=== PATIENT | female | born 1970 | race Caucasian/White ===

== ENCOUNTER → 2017-02-09 | Outpatient (CLI) | payer OTHER ==
[~2017-02-09] MED LIST: ABL/5 PO; ALBU1AER9 INH; ALUMCHW2 PO; ANSHCCR/ TOP; CITA40TA12 PO; CLIN1GEL TOP; DIPH25CA65 PO; FURO20TA PO; LEVO88TA3 PO; METH500T PO; PRLSR20 PO; ROPI1TAB PO; SUMA50TA15 PO
--- NOTE | 2017-02-09 11:00 | DIAGNOSTIC IMAGING REPORT ---
GI SERIES W/O KUB CLINICAL HISTORY: 46-year-old female with history of epigastric pain. TECHNIQUE: A standard air contrast upper GI series was performed. Spot images of the esophagus and stomach were obtained in multiple obliquities both upright and prone. COMPARISON: CT from 2010. FINDINGS: The patient swallowed barium without difficulty. The esophagus is structurally normal without evidence of intrinsic or extrinsic mass. The esophageal mucosal pattern is normal. Delayed clearance of oral contrast from the esophagus without evidence of dysmotility. Patient is status post Isaac-en-Y gastric bypass. Expected size of the gastric pouch. No ulceration. Patent gastrojejunostomy without evidence of holdup or leak. Normal appearing duodenal bulb and duodenal sweep. Contrast transited the proximal small anastomosis with rapid filling of small bowel. At the conclusion of the study, contrast had not yet reached the ileocecal valve, although a large portion of small bowel is normally opacified, which may encompass the distal anastomosis. Fluoroscopy dosage (mGy): Not available. Fluoroscopy time: 2.2 minutes. Number of fluoroscopic spot images: 22 and 1 overhead abdominal radiograph. IMPRESSION: Expected postoperative appearance of Isaac-en-Y gastric bypass. No leak or holdup. Delayed clearance of oral contrast from the esophagus likely an expected early postsurgical finding. Electronically signed by: Maykel Wilburn M.D. 02/09/2017 10:59 AM Dictated Date/Time: 02/09/2017 10:55 AM
== END | disposition home or self-care (01) ==
LOC: C.RAD 07:34
PROVIDERS: ATTEND Surgery
DX: R10.13 Epigastric pain (principal)

== ENCOUNTER 2017-05-07 21:02 | Emergency (ER) | payer OTHER ==
[~2017-05-07] VITALS: Ht 160 cm; Wt 88.6 kg
[2017-05-07 21:06] VITALS: TEMP 36.8; Ht 160 cm; Wt 88.6 kg
[2017-05-07] MEDS ORDERED: SODIUM CHLORIDE 0.9% 1000ML 1,000 ML IV ONE (21:24)
[2017-05-07] MEDS ORDERED: ONDANSETRON INJ 2 MG/ML 2 ML VIAL IV STA ×2 (21:24→23:20)
[2017-05-07] MEDS ORDERED: SODIUM CHLORIDE 0.9% 1000ML 1,000 ML IV STA ×2 (21:24→23:22)
[2017-05-07 21:51] LABS: BASO % 0.7 %; BASO ABS # 0.06 K/uL (0-0.2); COMPLETE YES; EOS % 5.7 %; HEMATOCRIT 35.4 % (37-47); IG% 0.2 %; LYMPH % 33.5 %; LYMPH ABS # 2.98 K/uL (1.2-3.4); MEAN CELL VOLUME 82.5 fL (80-100); MEAN CORPUSCULAR HGB CONC 33.9 g/dl (32-36); MONO % 7.3 %; NEUT % 52.6 %; PLATELET COUNT 240 K/uL (130-400); RED BLOOD COUNT 4.29 M/uL (4.2-5.4); WHITE BLOOD COUNT 8.89 K/uL (4.8-10.8)
[2017-05-07 22:13] LABS: ALKALINE PHOSPHATASE 115 U/L (45-117); ALT/SGPT 16 U/L (12-78); AST/SGOT 10 U/L (15-37)
[2017-05-07 23:10] LABS: BUN/CREATININE RATIO 11.5 (10-20); CALCIUM 8.7 mg/dl (8.5-10.1); CREATININE 0.58 mg/dl (0.60-1.20); POTASSIUM 2.9 mmol/L (3.5-5.1)
[2017-05-07] MEDS ORDERED: POTASSIUM CHLORIDE 20 MEQ/15 ML UDC PO STA (23:20)
[2017-05-07 23:23] LABS: URINE APPEARANCE TURBID (CLEAR); URINE COLOR DK YELLOW; URINE EPITHELIAL CELL AUTO >30 /lpf (0-5); URINE NITRITE NEG (NEG); URINE SPECIFIC GRAVITY 1.028 (1.000-1.030); UROBILINOGEN NEG (NEG)
[2017-05-07 23:41] LABS: MANUAL MICROSCOPIC REQUIRED? NO; REVIEW REQ? YES; URINE BILIRUBIN NEG (NEG); URINE MUCUS PRESENT (NONE PRSENT)
[2017-05-08] MEDS ORDERED: OPTIRAY 320 IV PRN
[2017-05-08] MEDS ORDERED: PROMETHAZINE HCL INJ 12.5 MG in SODIUM CHLORIDE 0.9% 50ML 50 ML IV STA (01:19)
--- NOTE | 2017-05-08 03:06 | EMERGENCY ROOM VISIT NOTE ---
History Report prepared by Sourav: Kathryn Arias Under the Supervision of: Dr. Art Mariscal M.D. First contact with patient: 21:17 Chief Complaint: VOMITING Stated Complaint: HAS ULCER,CAN'T KEEP ANYTHING DOWN History of Present Illness The patient is a 46 year old female who presents to the Emergency Room with complaints of constant vomiting starting 2 weeks ago. The patient states that she had a gastric bypass in December. She reports a few weeks after she was diagnosed with an ulcer. She reports that they found it with an endoscopy after she couldn't keep food down. She states that she has started to not even be able to keep liquids down. The patient complains of nausea. The patient denies hematochezia, hematemesis, melena, fevers, chest pain, shortness of breath, chance of , having imaging down on her abdomen, and seeing her PCP for this. She notes her depression has been good and she has not been taking her Lasix. Source of History: patient Onset: 2 weeks ago Position: other (global) Quality: other (global) Timing: constant Associated Symptoms: + nausea, No fevers, No chest pain, No SOB, No melena, No hematochezia Note: The patient denies hematemesis. Review of Systems See HPI for pertinent positives & negatives. A total of 10 systems reviewed and were otherwise negative. Past Medical & Surgical Surgical Problems: (1) Hx of cholecystectomy Old medical records were reviewed. Nurse's notes were reviewed and I agree with. Family History Hypertension Social History Smoking Status: Never Smoker Alcohol Use: none Drug Use: none Marital Status: Housing Status: lives with significant other Occupation Status: employed Current/Historical Medications Scheduled Albuterol (Proair Hfa), 2 PUFFS INH Q4HR PRN Aluminum Hydroxide-Mag Trisil (Gaviscon), 2 TAB PO TIDM Aripiprazole (Abilify), 5 MG PO QAM Furosemide (Lasix), 20 MG PO mon,wed,fri Levothyroxine Sodium (Levothyroxine Sodium), 1 TAB PO QAM Omeprazole (Prilosec), 20 MG PO BID Ondasetron Odt (Zofran Odt), 4 MG SL Q6H Ropinirole Hydrochloride (Requip), 1 MG PO TID Sumatriptan Succinate (Imitrex), 50 MG PO UD Scheduled PRN Methocarbamol (Robaxin), 2 TAB PO QID PRN for Pain Allergies Coded Allergies: Acetaminophen (Unverified Allergy, Unknown, HIVES, 09/25/15) Codeine (Verified Allergy, Unknown, hives, 09/25/15) Dextromethorphan (Unverified Allergy, Unknown, HIVES, 09/25/15) Doxylamine (Unverified Allergy, Unknown, HIVES, 09/25/15) Ethanol (Unverified Allergy, Unknown, HIVES, 09/25/15) Morphine (Unverified Allergy, Unknown, RASH, 05/07/17) Pseudoephedrine (Unverified Allergy, Unknown, HIVES, 09/25/15) Physical Exam Vital Signs Date Time Temp Pulse Resp B/P (MAP) Pulse Ox O2 Delivery O2 Flow Rate FiO2 05/08/17 02:21 64 18 120/80 98 Room Air 05/07/17 22:40 56 15 100/54 93 Room Air 05/07/17 21:06 36.8 69 16 111/75 97 Room Air Physical Exam General: Non-ill appearing middle aged female in no acute distress. HEENT: Normal cephalic atraumatic. Pupils are equal round and reactive to light. Extraocular movements are intact. Oropharynx is pink with moist mucous membranes. No swelling of the mouth lips or tongue. Neck: Supple with a midline trachea. No meningeal signs or stiffness, no JVD or bruits. No Stridor. Chest: Clear to auscultation bilaterally. No wheezes or rhonchi. No increased work of breathing. Heart: regular rate and rhythm. Abdomen: Soft, nondistended without rebound guarding or rigidity. Mildly tender in epigastric region. Well healing surgical incisions. Extremities: No cyanosis clubbing or edema. No calf tenderness or assymetry Spine/Back. Non tender to palpation. No CVA tenderness Skin: Good turgor without rashes. Neurologic exam: Cranial nerves two through 12 are intact. Motor and sensation are intact and symmetrical throughout. Medical Decision & Procedures ER Provider Diagnostic Interpretation: Radiology results as stated below per my review and radiologist interpretation: CT ABDOMEN & PELVIS: Compared to CT 04/02/11. Status post gastric bypass surgery with mild gastric and bowel wall thickening and adjacent stranding at the anastomosis in the epigastrium. Correlate clinically for inflammatory/ infectious process. A fluid and air-containing structure measuring 2.4 x 2.1 cm at the medical aspect of the anastomosis (series 2, images 17-19), possible bowel but cannot exclude possibility of abscess/dehiscence. Fluid is noted in small bowel loops, nonspecific, can be seen with enteritis in the appropriate clinical setting. No evidence of bowel obstruction. Slightly heterogenous renal enhancement. Small pelvic free fluid. Normal appendix. Prior cholecystectomy. Radiologist: Madalyn Kohler M.D. Study ready at 00:20 and initial results transmitted at 01:09. Laboratory Results 05/07/17 21:38 Red Blood Count 4.29, Mean Corpuscular Volume 82.5, Mean Corpuscular Hemoglobin 28.0, Mean Corpuscular Hemoglobin Concent 33.9, Mean Platelet Volume 11.0, Neutrophils (%) (Auto) 52.6, Lymphocytes (%) (Auto) 33.5, Monocytes (%) (Auto) 7.3, Eosinophils (%) (Auto) 5.7, Basophils (%) (Auto) 0.7, Neutrophils # (Auto) 4.67, Lymphocytes # (Auto) 2.98, Monocytes # (Auto) 0.65, Eosinophils # (Auto) 0.51, Basophils # (Auto) 0.06 05/07/17 21:38 Test 05/07/17 21:38 05/07/17 21:47 05/07/17 22:10 White Blood Count 8.89 K/uL (4.8-10.8) Red Blood Count 4.29 M/uL (4.2-5.4) Hemoglobin 12.0 g/dL (12.0-16.0) Hematocrit 35.4 % (37-47) Mean Corpuscular Volume 82.5 fL (80-100) Mean Corpuscular Hemoglobin 28.0 pg (25-34) Mean Corpuscular Hemoglobin Concent 33.9 g/dl (32-36) Platelet Count 240 K/uL (130-400) Mean Platelet Volume 11.0 fL (7.4-10.4) Neutrophils (%) (Auto) 52.6 % Lymphocytes (%) (Auto) 33.5 % Monocytes (%) (Auto) 7.3 % Eosinophils (%) (Auto) 5.7 % Basophils (%) (Auto) 0.7 % Neutrophils # (Auto) 4.67 K/uL (1.4-6.5) Lymphocytes # (Auto) 2.98 K/uL (1.2-3.4) Monocytes # (Auto) 0.65 K/uL (0.11-0.59) Eosinophils # (Auto) 0.51 K/uL (0-0.5) Basophils # (Auto) 0.06 K/uL (0-0.2) RDW Standard Deviation 45.2 fL (36.4-46.3) RDW Coefficient of Variation 14.9 % (11.5-14.5) Immature Granulocyte % (Auto) 0.2 % Immature Granulocyte # (Auto) 0.02 K/uL (0.00-0.02) Anion Gap 8.0 mmol/L (3-11) Est Creatinine Clear Calc Drug Dose 130.7 ml/min Estimated GFR () 129.9 Estimated GFR (Non- 112.1 BUN/Creatinine Ratio 11.5 (10-20) Calcium Level 8.7 mg/dl (8.5-10.1) Total Bilirubin 0.4 mg/dl (0.2-1) Direct Bilirubin < 0.1 mg/dl (0-0.2) Aspartate Amino Transf (AST/SGOT) 10 U/L (15-37) Alanine Aminotransferase (ALT/SGPT) 16 U/L (12-78) Alkaline Phosphatase 115 U/L (45-117) Total Protein 6.7 gm/dl (6.4-8.2) Albumin 3.2 gm/dl (3.4-5.0) Lipase 60 U/L (73-393) Bedside Troponin I < 0.030 ng/ml (0-0.045) Urine Color DK YELLOW Urine Appearance TURBID (CLEAR) Urine pH 5.0 (4.5-7.5) Urine Specific [place] 1.028 (1.000-1.030) Urine Protein NEG (NEG) Urine Glucose (UA) NEG (NEG) Urine Ketones TRACE (NEG) Urine Occult Blood NEG (NEG) Urine Nitrite NEG (NEG) Urine Bilirubin NEG (NEG) Urine Urobilinogen NEG (NEG) Urine Leukocyte Esterase TRACE (NEG) Urine WBC (Auto) 1-5 /hpf (0-5) Urine RBC (Auto) 0-4 /hpf (0-4) Urine Hyaline Casts (Auto) 0 /lpf (0-5) Urine Epithelial Cells (Auto) >30 /lpf (0-5) Urine Bacteria (Auto) NEG (NEG) Urine Crystals CALCIUM OXALATE (NONE Urine Pathogenic Casts /lpf (0) Urine Mucus PRESENT (NONE PRSENT) Laboratory studies as stated above per my review. Medications Administered Medications (Trade) Dose Ordered Sig/Tess Route Start Time Stop Time Status Last Admin Dose Admin Sodium Chloride 1,000 ml @ 999 mls/hr Q1H1M STAT IV 05/07/17 21:24 05/07/17 22:24 DC 05/07/17 22:36 999 MLS/HR Sodium Chloride 1,000 ml @ 200 mls/hr Q5H ONCE IV 05/07/17 21:24 05/08/17 02:23 DC 05/07/17 22:36 200 MLS/HR Ondansetron HCl (Zofran Inj) 4 mg NOW STAT IV 05/07/17 21:24 05/07/17 21:26 DC 05/07/17 22:33 4 MG Ondansetron HCl (Zofran Inj) 4 mg NOW STAT IV 05/07/17 23:20 05/07/17 23:23 DC 05/07/17 23:31 4 MG Potassium Chloride (Balbina Ciel Elix) 40 meq NOW STAT PO 05/07/17 23:20 05/07/17 23:23 DC 05/07/17 23:31 40 MEQ Sodium Chloride 1,000 ml @ 999 mls/hr Q1H1M STAT IV 05/07/17 23:22 05/08/17 00:22 DC 05/07/17 23:31 999 MLS/HR Promethazine HCl 12.5 mg/Sodium Chloride 50.5 ml @ 204 mls/hr NOW STAT IV 05/08/17 01:19 05/08/17 01:33 DC 05/08/17 01:29 204 MLS/HR ECG Indication: vomiting Rate (beats per minute): 61 Rhythm: normal sinus Findings: RBBB, no acute ischemic change Comparison ECG Date: January 09, 2017 Change: Bundle branch block is now present. ED Course 2117: Past medical records reviewed. The patient was evaluated in room B8, and a complete history and physical examination were performed. 2123: Ordered Zofran Inj 4 mg IV, NSS 1000 ml @ 200 mls/hr IV, NSS 1000 ml @ 999 mls/hr IV. 2230: I reevaluated the patient and she is just getting medication. 2312: I reevaluated the patient and she is doing okay. 2320: Ordered Potassium Chloride 40 meq PO, Zofran Inj 4 mg IV. 2322: Ordered NSS 1000 ml @ 999 mls/hr IV. 0006: I reevaluated the patient and she is coming back from CT. She appears comfortable. 0118: I reevaluated the patient and she is still nauseous. 0119: Ordered Promethazine HCl 12.5 mg/ Sodium Chloride 50.5 ml @ 204 mls/hr IV. 0126: I discussed the patient's case with Dr. Retana- patricia. He would like the patient to have another CT with contrast. 0214: I went to reevaluate the patient, but she is currently at CT. Medical Decision Differential diagnoses include dehydration, infection, ulcer, cardiac disease, electrolyte abnormality, metabolic abnormality. This patient comes in as described above. She was placed in room B8. She is here for treatment and evaluation of vomiting and epigastric abdominal discomfort. She had a gastric bypass this past December and had endoscopy in January and was told she had an ulcer at the anastomosis she's had no blood or melena in her stools she's not been vomiting any blood. She's had no fevers. She tells me over the last couple weeks. She's had a hard time keeping down food or fluids. On exam, she appears mildly uncomfortable however has no peritonitis. She is afebrile here. IV access established was hydrated with IV normal saline and received 2 L IV while she was here over several hours. She was given Zofran 4 mg IV 2 and Phenergan 12.5 mg IV for nausea management while she was here and seems to be doing better. She's had no white count or fever to suggest infection. She has no significant electrolyte or metabolic abnormalities and nothing to suggest dehydration. She's nothing had nothing to suggest that has pancreatitis. I did a CAT scan and there is some stranding at the anastomosis as well as an air-fluid structure which could be bowel or abscess/dehiscence I called and talked to Dr. Retana , who is the [facility] physician covering for her surgeon Dr. Michael, and he recommended doing the CAT scan with oral contrast to look at the anastomosis and to call him back. This was done. The previous described collection feels with oral contrast was contiguous adjacent bowel is bowel wall thickening no free extravasation. I read these findings to Dr. Retana. He felt that she could go home as long she looked okay which she does. He did not think this was likely dehiscence. The patient is to ensure that she is taking her proton pump inhibitor and Carafate and it was given Zofran. They're to call her tomorrow and arrange close follow- up with endoscopy to look at this. The patient was happy with the plan and discharged home with close follow-up with the bariatric surgery team. Her potassium was mildly low and she was repleted here and she's can increase her dietary potassium as well Consults Time Called: 0120 Consulting Physician: Dr. Monico Ochoa Returned Call: 0126 I discussed the patient's case with Dr. Monico Ochoa. He would like the patient to have another CT with contrast. Impression Primary Impression: Nausea Additional Impressions: Epigastric abdominal pain H/O gastric bypass Scribe Attestation The scribe's documentation has been prepared under my direction and personally reviewed by me in its entirety. I confirm that the note above accurately reflects all work, treatment, procedures, and medical decision making performed by me. Departure Information Dispostion Transfer Acute Care Facility Prescriptions Ondasetron Odt (ZOFRAN ODT) 4 Mg Tab 4 MG SL Q6H for Nausea, #15 TAB Prov: Art Mariscal M.D. 05/08/17 Referrals Chiara Dove M.D. (MEDICAL) (PCP) Patient Instructions My [facility] Problem Qualifiers
[2017-05-08] MEDS ORDERED: ONDA4TAB10 SL (03:51)
[2017-05-08] MEDS ORDERED: ONDANSETRON HOME PACK 4MG OD TAB PO ONE (04:00)
[2017-05-08 04:03] VITALS: BP 123/110; PULSE 56; O2SAT 97
--- NOTE | 2017-05-08 07:36 | DIAGNOSTIC IMAGING REPORT ---
ABDOMEN CT WITH ORAL CONTRAST CT DOSE: 365.91 mGy.cm HISTORY: Upper abdominal pain. Status post gastric bypass. TECHNIQUE: Multiaxial CT images of the abdomen were performed following use of oral contrast to evaluate the stomach. A dose lowering technique was utilized adhering to the principles of ALARA. COMPARISON STUDY: Abdomen and pelvis CT 05/08/2017. FINDINGS: Oral contrast is identified within the gastric pouch and gastrojejunostomy. No actual luminal contrast to suggest a leak. No contrast within the excluded portion of the stomach to suggest a fistula. The visualized loops of bowel show no evidence for obstruction. Mild thickening at the site of gastric bypass which may be due to the recent postoperative change. Small focal areas of retained contrast within the cortices of the bilateral kidneys. No hydronephrosis. Cholecystectomy. The unenhanced liver, spleen, adrenal glands, and pancreas are unremarkable. Mild adjacent fat stranding surrounding the gastric bypass. IMPRESSION: 1. No evidence for leak or fistula status post gastric bypass. Oral contrast is in the expected locations of the gastric bypass. 2. Mild bowel wall thickening and fat stranding at the site of gastric bypass which could be due to the recent postoperative change. 3. Small focal areas of retained contrast within the cortices of the bilateral kidneys. This could be due to recent renal insult. Recommend correlation with renal function tests. Electronically signed by: Jesus Alberto Shah M.D. 05/08/2017 7:35 AM Dictated Date/Time: 05/08/2017 7:29 AM
--- NOTE | 2017-05-08 07:37 | DIAGNOSTIC IMAGING REPORT ---
CT SCAN OF THE ABDOMEN AND PELVIS WITH IV CONTRAST CLINICAL HISTORY: Generalized abdominal pain. Nausea and vomiting. COMPARISON STUDY: Abdominal CT dated 04/02/2011. Fluoroscopic upper GI series dated 02/09/2017. TECHNIQUE: Following the IV administration of 93 cc of Optiray 320, CT scan of the abdomen and pelvis is performed from the lung bases to the proximal femora. Images are reviewed in the axial, sagittal, and coronal planes. IV contrast was administered without complication. A dose lowering technique was utilized adhering to the principles of ALARA. CT DOSE: 646.14 mGy.cm FINDINGS: Lung bases: The heart is normal in size and without pericardial effusion. The lung bases are clear. Liver: The contrast-enhanced liver is mildly enlarged measuring 18.1 cm in length. The liver demonstrates diffusely diminished attenuation consistent with hepatic steatosis. There is no intrahepatic biliary ductal dilatation. The hepatic veins and portal veins are patent. Gallbladder: Surgically absent noting clips in the gallbladder fossa. Spleen: Normal in size and attenuation. Pancreas: Atrophic for age. Adrenal glands: A 1.7 cm left adrenal nodule is unchanged from previous. This likely represents an adenoma but cannot be definitively characterized. The right adrenal gland is normal in appearance. Kidneys: The contrast enhanced kidneys are normal in size and without hydronephrosis. The kidneys enhance symmetrically. Scattered subcentimeter cortical hypodensities likely represent cysts but are too small for definitive characterization. These are similar to previous. Abdominal vasculature: The abdominal aorta is normal in course and caliber. Stomach and bowel: There are postoperative changes from a Isaac-en-Y gastric bypass procedure. No bowel obstruction is seen. There is mild stranding identified around the stomach with questionable mild gastric wall thickening. No perigastric fluid is identified and there is no organized fluid collection. The appendix is well-visualized and normal. Peritoneum: There is no intraperitoneal free air or abdominal ascites. Lymphadenopathy: None. Pelvic viscera: The bladder, uterus, and adnexa are normal as visualized. There are small ovarian follicles. Trace free fluid is seen in the cul-de-sac. Skeletal structures: Sclerotic change is seen at the pubic symphysis. Mild lumbosacral spondylosis is observed. There is a large hemangioma in the body of L1. No lytic or blastic lesions are seen. IMPRESSION: 1. There are postoperative changes from a Isaac-en-Y gastric bypass surgery. No bowel obstruction is seen. 2. There is mild and nonspecific perigastric stranding with questionable mild gastric wall thickening. No perigastric fluid is identified. There is no evidence of abscess. Correlate clinically for evidence of infection/inflammation. Follow-up of the patient's bariatric surgeon is recommended. 3. Hepatomegaly and hepatic steatosis. 4. There is a small volume of free fluid in cul-de-sac, likely within physiologic limits. Electronically signed by: Kael Barrera M.D. 05/08/2017 7:36 AM Dictated Date/Time: 05/08/2017 7:15 AM
== END 2017-05-08 04:05 | disposition home or self-care (01) ==
LOC: C.EDB 21:03
DX: R11.2 Nausea with vomiting, unspecified (principal); R10.13 Epigastric pain; Z98.84 Bariatric surgery status; Z90.49 Acquired absence of other specified parts of digestive tract; Z98.890 Other specified postprocedural states; Z82.49 Family history of ischemic heart disease and other diseases of the circulatory system

== ENCOUNTER → 2017-07-18 | Outpatient (CLI) | payer OTHER ==
[~2017-07-18] MED LIST changes: -ANSHCCR/ TOP; +ATR25 PO; +CEPH500C PO; -CITA40TA12 PO; +CITA40TA4 PO; -CLIN1GEL TOP; -DIPH25CA65 PO; +LANS30CA12 PO; +ONDA4TAB10 SL; +ONDA4TAB9 PO; +PROAIR HFA INH; +SUCR1TAB29 PO
--- NOTE | 2017-07-20 11:39 | POLYSOMNOGRAPH REPORT ---
CLINICAL DATA: 47-year-old female with a BMI of 33 referred by LOLA Wesley for evaluation of possible nocturnal hypoxemia. The patient had previous gastric bypass surgery over a year ago and a previous history of mild sleep apnea. She had a home sleep apnea test which showed a normal AHI but nocturnal hypoxemia. She does have CPAP at home. Her Proctor sleepiness score is 5/24. SLEEP ARCHITECTURE: Total sleep period was 428.5 minutes. Total sleep time was 404.5 minutes divided between 304 minutes of non-REM sleep and 100.5 minutes of REM sleep. Sleep onset latency was slightly delayed at 36.5 minutes. REM latency was 133 minutes. Sleep efficiency was 87%. Wake after sleep onset was 24 minutes. Sleep consisted of stage N1 2%, stage N2 73%, and REM 25%. AROUSAL DATA: 48 arousals were recorded for an index of 7 per hour. 37 were spontaneous. PLM DATA: 104 limb movements during sleep were noted for an index of 15.4 per hour with arousal index of 0.9 per hour. RESPIRATORY DATA: There was no evidence of clinically significant sleep apnea seen. The AHI was 0.4. There was 1 obstructive apneic episode, 10.8 seconds in duration. There were 2 hypopneic episodes with the mean duration of 11.5 seconds. OXIMETRY DATA: No significant hypoxemia was seen. Oxygen rebecca was 81% during REM. The mean saturation was 90%. Time below 88% was 1 minute. EKG: Heart rates ranged from 45-84 beats per minute. No arrhythmias were noted. FLA[employer]'S COMMENTS: The patient slept in the right, left, and supine positions. Snoring was mild, rated 1 on a scale of 1 through 5. The patient did have 3 sleep cycles each of which ended in REM sleep. IMPRESSION: No evidence of clinically significant sleep apnea/hypopnea or nocturnal hypoxemia. RECOMMENDATIONS: The patient should continue to practice good sleep hygiene and maintain her weight under control. There is nothing on this in-lab sleep study to suggest that oxygen or CPAP are needed at this time. MTDD
== END | disposition home or self-care (01) ==
LOC: C.NEUR 21:00
PROVIDERS: ATTEND Nurse Practitioner Family
DX: G47.34 Idiopathic sleep related nonobstructive alveolar hypoventilation (principal); G47.33 Obstructive sleep apnea (adult) (pediatric)

== ENCOUNTER → 2017-08-02 | Outpatient (CLI) | payer BC ==
[~2017-08-02] MED LIST changes: -ATR25 PO; -CEPH500C PO; -CITA40TA4 PO; -LANS30CA12 PO; -ONDA4TAB9 PO; -PROAIR HFA INH; -SUCR1TAB29 PO
== END | disposition home or self-care (01) ==
LOC: C.LAB 10:00
PROVIDERS: ATTEND Nurse Practitioner Family
DX: G47.34 Idiopathic sleep related nonobstructive alveolar hypoventilation (principal)

== ENCOUNTER 2017-10-31 20:54 | Emergency (ER) | payer BC ==
[~2017-10-31] VITALS: Ht 157.5 cm; Wt 78.0 kg
[2017-10-31 21:02] VITALS: TEMP 36.7; Ht 157.5 cm; Wt 78.0 kg
[2017-10-31] MEDS ORDERED: LIDO/EPINEPHRINE/SOD BICARB 20 ML VIAL INFIL ONE (21:43)
[2017-10-31] MEDS ORDERED: CEPHALEXIN 500MG HOME PACK 1 EA BTL PO STA ×2 (21:58→22:14)
[2017-10-31] MEDS ORDERED: OXYCODONE IR HOME PACK PO STA (22:14)
[2017-10-31] MEDS ORDERED: CEPH500C PO (22:16)
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
[2017-10-31 22:38] VITALS: BP 113/63; PULSE 66; O2SAT 97
== END 2017-10-31 22:42 | disposition home or self-care (01) ==
LOC: C.EDB 20:55 → C.EDD 22:42
DX: S71.111A Laceration without foreign body, right thigh, initial encounter (principal); W26.0XXA Contact with knife, initial encounter; Z82.49 Family history of ischemic heart disease and other diseases of the circulatory system; Z79.899 Other long term (current) drug therapy

== ENCOUNTER 2017-12-03 17:09 | Emergency (ER) | payer BC ==
[~2017-12-03] VITALS: Ht 157.5 cm; Wt 75.6 kg
[~2017-12-03 17:09] MED LIST changes: -ONDA4TAB10 SL
[2017-12-03 17:10] VITALS: TEMP 36.7; Ht 157.5 cm; Wt 75.6 kg
[2017-12-03] MEDS ORDERED: SODIUM CHLORIDE 0.9% 1000ML 1,000 ML IV STA ×3 (17:16→19:45)
[2017-12-03 17:20] VITALS: O2SAT 100
[2017-12-03] MEDS ORDERED: METOCLOPRAMIDE HCL INJ 5 MG/ML 2 ML VIAL IV STA (17:26)
[2017-12-03 17:35] LABS: BASO % 0.5 %; BASO ABS # 0.06 K/uL (0-0.2); EOS % 2.9 %; EOS ABS # 0.32 K/uL (0-0.5); HEMATOCRIT 31.2 % (37-47); HEMOGLOBIN 10.5 g/dL (12.0-16.0); IG# 0.03 K/uL (0.00-0.02); LYMPH % 34.9 %; LYMPH ABS # 3.85 K/uL (1.2-3.4); MEAN CELL VOLUME 86.7 fL (80-100); MEAN CORPUSCULAR HEMOGLOBIN 29.2 pg (25-34); MEAN CORPUSCULAR HGB CONC 33.7 g/dl (32-36); MEAN PLATELET VOLUME 10.4 fL (7.4-10.4); MONO ABS # 0.55 K/uL (0.11-0.59); NEUT % 56.4 %; NEUT ABS # 6.21 K/uL (1.4-6.5); PLATELET COUNT 216 K/uL (130-400); RED CELL DISTRIBUTION WIDTH CV 14.3 % (11.5-14.5); RED CELL DISTRIBUTION WIDTH SD 45.2 fL (36.4-46.3); WHITE BLOOD COUNT 11.02 K/uL (4.8-10.8)
--- NOTE | 2017-12-03 17:36 | EMERGENCY ROOM VISIT NOTE ---
History Report prepared by Sourav: Jameel Nelson Under the Supervision of: Dr. Rommel Rodriguez M.D. First contact with patient: 17:14 Chief Complaint: GI ASSESSMENT Stated Complaint: BLOOD IN STOOL, VERY WEAK History of Present Illness The patient is a 47 year old female who presents to the Emergency Room with complaints of an episode of bloody stools that began an hour ago. She rates her discomfort as a 7/10 in severity. The patient is accompanied by her who states that the patient has a history of an ulcer. He reports that the patient has an ulcer removal surgery scheduled for the 11 of December. Her states that the surgery is supposed to be performed by Dr. Michael [facility], who is the same surgeon who performed her gastric bypass in the past. Her states that Dr. Michael noted the ulcer was by the suture from the previous bypass. The patient's states the patient was complaining of dizziness and weakness around 1500. He reports that he went home to take care of the patient when he found her intermittently falling asleep on the couch. Her states the patient then went to have a bowel movement and noticed she had a large amount of blood in her stool. He reports that due to the amount of blood in her stool and her weakness he called EMS. The patient is currently complaining of weakness and abdominal pain. She denies any blood thinner use or a history of blood transfusions. Her states the patient did have an EGD performed a week ago in [place]. Source of History: patient, spouse/significant other Onset: an hour ago Position: other (global) Symptom Intensity: 7/10 Quality: other (bloody stool) Timing: other (an episode) Associated Symptoms: + abdominal pain, + weakness Note: Associated symptoms: dizziness Review of Systems See HPI for pertinent positives & negatives. A total of 10 systems reviewed and were otherwise negative. Past Medical & Surgical Medical Problems: (1) Stomach ulcer Surgical Problems: (1) Hx of cholecystectomy (2) Hx of gastric bypass Family History Hypertension Social History Smoking Status: Never Smoker Alcohol Use: none Drug Use: none Marital Status: Housing Status: lives with significant other Occupation Status: employed Current/Historical Medications Scheduled Aripiprazole (Abilify), 5 MG PO QAM Citalopram (Citalopram Hydrobromide), 40 MG PO DAILY Hydroxyzine HCl (Hydroxyzine HCl), 25 MG PO BID Lansoprazole (Prevacid), 1 CAP PO DAILY Levothyroxine Sodium (Levothyroxine Sodium), 1 TAB PO QAM Omeprazole (Prilosec), 20 MG PO BID Ondansetron (Ondansetron HCl), 4 MG PO PRN UD Ropinirole Hydrochloride (Requip), 1 MG PO TID Sucralfate (Carafate), 1 GM PO AC Sumatriptan Succinate (Imitrex), 50 MG PO UD Scheduled PRN [Proair Hfa], 2 PUFF INH Q4 PRN for SOB/Wheezing Allergies Coded Allergies: Acetaminophen (Unverified Allergy, Unknown, HIVES, 09/25/15) Codeine (Verified Allergy, Unknown, hives, 09/25/15) Dextromethorphan (Unverified Allergy, Unknown, HIVES, 09/25/15) Doxylamine (Unverified Allergy, Unknown, HIVES, 09/25/15) Ethanol (Unverified Allergy, Unknown, HIVES, 09/25/15) Morphine (Unverified Allergy, Unknown, RASH, 05/07/17) Pseudoephedrine (Unverified Allergy, Unknown, HIVES, 09/25/15) Physical Exam Vital Signs Date Time Temp Pulse Resp B/P (MAP) Pulse Ox O2 Delivery O2 Flow Rate FiO2 12/03/17 20:00 72 18 96/54 98 Room Air 12/03/17 18:49 66 14 103/68 100 Room Air 12/03/17 18:14 68 20 99/53 100 Room Air 12/03/17 17:33 65 16 99/67 98 Room Air 12/03/17 17:23 64 14 97/62 98 Room Air 12/03/17 17:21 64 12/03/17 17:20 100 Room Air 12/03/17 17:10 36.7 67 18 64/47 99 Room Air Physical Exam GENERAL: Awake, alert, pale in appearance, in no acute distress HENT: Normocephalic, atraumatic. Oropharynx unremarkable. EYES: Normal conjunctiva. Sclera non-icteric. NECK: Supple. No nuchal rigidity. FROM. No JVD. RESPIRATORY: Clear to auscultation. CARDIAC: Regular rate, normal rhythm. Extremities warm and well perfused. Pulses equal. ABDOMEN: Soft, non-distended. Minimally tender in the epigastric region. No rebound or guarding. No masses. RECTAL: Deferred. MUSCULOSKELETAL: Chest examination reveals no tenderness. The back is symmetrical on inspection without obvious abnormality. There is no CVA tenderness to palpation. No joint edema. LOWER EXTREMITIES: Calves are equal size bilaterally and non-tender. No edema. No discoloration. NEURO: Normal sensorium. No sensory or motor deficits noted. SKIN: No rash or jaundice noted. RECTAL: Dark red blood on exam. Rectal vault appears to be empty. Medical Decision & Procedures ER Provider Diagnostic Interpretation: Radiology results as stated below per my review and radiologist interpretation: CHEST ONE VIEW PORTABLE HISTORY: Rectal bleeding. COMPARISON: Chest 12/31/2011. FINDINGS: The lungs are clear. Cardiac silhouette is normal in size. No pleural effusions. No pneumothorax. IMPRESSION: No acute process. Electronically signed by: Jesus Alberto Shah M.D. 12/03/2017 5:45 PM Dictated Date/Time: 12/03/2017 5:44 PM ABDOMEN AND PELVIS CT WITH IV CONTRAST CT DOSE: 413.11 mGy.cm HISTORY: Pt c/o rectal bleed, generalized abdominal pain TECHNIQUE: Multiaxial CT images of the abdomen and pelvis were performed following the use of intravenous contrast. A dose lowering technique was utilized adhering to the principles of ALARA. COMPARISON STUDY: Abdomen CT 05/08/2017. FINDINGS: The lung bases are essentially clear. Groundglass densities within the right lower lobe medial may represent scarring. No pneumoperitoneum. No pneumatosis. No fractures within the visualized osseous structures. Cholecystectomy. The liver, pancreas, spleen, and adrenal glands are unremarkable. Normal left kidney. No hydronephrosis. Stable 6 mm hypodense lesion within the right kidney. This is too small to characterize. No retroperitoneal lymphadenopathy. No pelvic free fluid. The bladder, uterus, bilateral ovaries are within normal limits. There is a 1.9 cm left ovarian cyst normal appendix. Status post gastric bypass. Contrast extends into the jejunostomy loop. No dilated loops of small bowel to suggest a small bowel obstruction. No bowel wall thickening. There is focal mild dilatation of the fundus of the excluded portion of the stomach best seen on image 52 within the left upper quadrant. There is filled with gas and fluid. IMPRESSION: 1. Prior gastric bypass. The fundus of the excluded portion of the stomach within the left upper quadrant adjacent to the suture material appears to be mildly dilated and partially fluid-filled compared to the remaining portions of the excluded stomach. This could be transient. However, if the patient is complaining of left upper quadrant pain then a partial obstruction at the gastric fundus cannot be excluded. Endoscopy can be further further evaluation. 2. No definite thickening within the small or large bowel. 3. Normal appendix. 4. Cholecystectomy. Electronically signed by: Jesus Alberto Shah M.D. 12/03/2017 6:41 PM Dictated Date/Time: 12/03/2017 6:30 PM Laboratory Results 12/03/17 17:20 Red Blood Count 3.60, Mean Corpuscular Volume 86.7, Mean Corpuscular Hemoglobin 29.2, Mean Corpuscular Hemoglobin Concent 33.7, Mean Platelet Volume 10.4, Neutrophils (%) (Auto) 56.4, Lymphocytes (%) (Auto) 34.9, Monocytes (%) (Auto) 5.0, Eosinophils (%) (Auto) 2.9, Basophils (%) (Auto) 0.5, Neutrophils # (Auto) 6.21, Lymphocytes # (Auto) 3.85, Monocytes # (Auto) 0.55, Eosinophils # (Auto) 0.32, Basophils # (Auto) 0.06 12/03/17 17:20 Test 12/03/17 07:33 12/03/17 17:20 12/03/17 17:25 Urine Color YELLOW Urine Appearance CLEAR (CLEAR) Urine pH 6.5 (4.5-7.5) Urine Specific [place] > 1.045 (1.000-1.030) Urine Protein NEG (NEG) Urine Glucose (UA) NEG (NEG) Urine Ketones 1+ (NEG) Urine Occult Blood 2+ (NEG) Urine Nitrite NEG (NEG) Urine Bilirubin NEG (NEG) Urine Urobilinogen NEG (NEG) Urine Leukocyte Esterase NEG (NEG) Urine WBC (Auto) 1-5 /hpf (0-5) Urine RBC (Auto) 0-4 /hpf (0-4) Urine Hyaline Casts (Auto) 1-5 /lpf (0-5) Urine Epithelial Cells (Auto) >30 /lpf (0-5) Urine Bacteria (Auto) NEG (NEG) White Blood Count 11.02 K/uL (4.8-10.8) Red Blood Count 3.60 M/uL (4.2-5.4) Hemoglobin 10.5 g/dL (12.0-16.0) Hematocrit 31.2 % (37-47) Mean Corpuscular Volume 86.7 fL (80-100) Mean Corpuscular Hemoglobin 29.2 pg (25-34) Mean Corpuscular Hemoglobin Concent 33.7 g/dl (32-36) Platelet Count 216 K/uL (130-400) Mean Platelet Volume 10.4 fL (7.4-10.4) Neutrophils (%) (Auto) 56.4 % Lymphocytes (%) (Auto) 34.9 % Monocytes (%) (Auto) 5.0 % Eosinophils (%) (Auto) 2.9 % Basophils (%) (Auto) 0.5 % Neutrophils # (Auto) 6.21 K/uL (1.4-6.5) Lymphocytes # (Auto) 3.85 K/uL (1.2-3.4) Monocytes # (Auto) 0.55 K/uL (0.11-0.59) Eosinophils # (Auto) 0.32 K/uL (0-0.5) Basophils # (Auto) 0.06 K/uL (0-0.2) RDW Standard Deviation 45.2 fL (36.4-46.3) RDW Coefficient of Variation 14.3 % (11.5-14.5) Immature Granulocyte % (Auto) 0.3 % Immature Granulocyte # (Auto) 0.03 K/uL (0.00-0.02) Prothrombin Time 10.8 SECONDS (9.0-12.0) Prothromb Time International Ratio 1.0 (0.9-1.1) Activated Partial Thromboplast Time 20.1 SECONDS (21.0-31.0) Partial Thromboplastin Ratio 0.8 Est Creatinine Clear Calc Drug Dose 98.0 ml/min Estimated GFR () 121.8 Estimated GFR (Non- 105.1 BUN/Creatinine Ratio 41.9 (10-20) Calcium Level 7.8 mg/dl (8.5-10.1) Total Bilirubin 0.2 mg/dl (0.2-1) Direct Bilirubin < 0.1 mg/dl (0-0.2) Aspartate Amino Transf (AST/SGOT) 13 U/L (15-37) Alanine Aminotransferase (ALT/SGPT) 25 U/L (12-78) Alkaline Phosphatase 82 U/L (45-117) Total Protein 5.8 gm/dl (6.4-8.2) Albumin 3.0 gm/dl (3.4-5.0) Lipase 48 U/L (73-393) Human Chorionic Gonadotropin, Qual NEG (NEG) Bedside Hemoglobin 10.9 g/dl (12.0-16.0) Bedside Hematocrit 32 % (37-47) Bedside Sodium 138 mEq/L (135-144) Bedside Potassium 4.3 mEq/L (3.3-5.0) Bedside Chloride 104 mEq/L (101-112) Bedside Total CO2 22 mEq/l (24-31) Anion Gap 18.0 mmol/L (16-25) Bedside Blood Urea Nitrogen 31 mg/dl (7-18) Bedside Creatinine 0.6 mg/dl (0.6-1.3) Bedside Glucose (other) 127 mg/dl (70-99) Bedside Ionized Calcium (Juana) 1.09 mmol/l (1.12-1.32) Labs reviewed by ED physician. Medications Administered Medications (Trade) Dose Ordered Sig/Tess Route Start Time Stop Time Status Last Admin Dose Admin Sodium Chloride 1,000 ml @ 999 mls/hr Q1H1M STAT IV 12/03/17 17:16 12/03/17 18:16 DC 12/03/17 18:12 999 MLS/HR Metoclopramide HCl (Reglan Inj) 10 mg NOW STAT IV 12/03/17 17:26 12/03/17 17:27 DC 12/03/17 18:12 10 MG Pantoprazole Sodium 80 mg/ Dextrose 120 ml @ 480 mls/hr NOW ONCE IV 12/03/17 17:45 12/03/17 17:59 DC 12/03/17 18:09 480 MLS/HR Pantoprazole Sodium 40 mg/ Dextrose 100 ml @ 20 mls/hr Q5H IV 12/03/17 18:00 12/03/17 21:06 DC 12/03/17 18:09 20 MLS/HR Sodium Chloride 1,000 ml @ 999 mls/hr Q1H1M STAT IV 12/03/17 17:43 12/03/17 18:43 DC 12/03/17 18:12 999 MLS/HR Hydromorphone HCl (Dilaudid Inj) 0.5 mg NOW STAT IV 12/03/17 18:20 12/03/17 18:21 DC 12/03/17 18:26 0.5 MG Ondansetron HCl (Zofran Inj) 4 mg NOW STAT IV 12/03/17 18:20 12/03/17 18:21 DC 12/03/17 18:26 4 MG Promethazine HCl 25 mg/Sodium Chloride 51 ml @ 204 mls/hr NOW STAT IV 12/03/17 18:43 12/03/17 18:57 DC 12/03/17 19:03 204 MLS/HR Hydromorphone HCl (Dilaudid Inj) 1 mg NOW STAT IV 12/03/17 18:43 12/03/17 18:44 DC 12/03/17 19:03 1 MG Sodium Chloride 1,000 ml @ 125 mls/hr Q8H STAT IV 12/03/17 19:45 12/03/17 21:06 DC 12/03/17 20:18 125 MLS/HR ECG Per My Interpretation Indication: weakness Rate (beats per minute): 61 Rhythm: normal sinus Findings: other (No ST elevation or depression) ED Course 1713: Past medical records reviewed. The patient was evaluated in room B01. A complete history and physical examination was performed. 1716: Ordered Sodium Chloride 1000 ml @ 999 mls/hr IV. 1726: Ordered Reglan Injection 10 mg IV. 1745: Ordered Pantoprazole Sodium 80 mg/Dextrose 120 ml @ 480 mls/hr IV. 1800: Ordered Pantoprazole Sodium 40 mg/Dextrose 100 ml @ 20 mls/hr IV. 181: I discussed the patient's case with Dr. Yancey, [facility]. He understands the patient's condition and agrees to accept the patient. The patient will be transferred. 181: I reevaluated the patient and updated her on her results. I discussed the treatment plan, which she and her agree to. The patient will be transferred. 1820: Ordered Zofran Injection 4 mg IV, Dilaudid Injection 0.5 mg IV. 1843: Ordered Dilaudid Injection 1 mg IV, Promethazine HCl 25 mg/ Sodium Chloride 51 ml @ 204 mls/hr IV. 1847: I reevaluated the patient and updated her on her CT results. The patient is waiting to be transferred. 1942: I reevaluated the patient and she is doing better. She is still waiting to be transferred. 1944: Ordered Sodium Chloride 1000 ml @ 125 mls/hr IV. 2034: The patient has been discharged for transfer. Medical Decision Prior records/ancillary studies reviewed. Triage Nursing notes reviewed. Additional history obtained from the patient's . The patient's history was concerning for possible gastrointestinal bleeding. Differential diagnosis: Etiologies such as diverticulosis, AVM, coagulopathy, colitis, inflammatory bowel disease, malignancy, Iva-Jameson tear, esophagitis, peptic ulcer disease , variceal bleed, gastritis, epistaxis, fissure, hemorrhoids, as well as others were entertained. This is a 47-year-old female who presents the emergency department hypotensive after a massive rectal bleed. Patient has dropped her hemoglobin from 14-10. Patient has a history of gastric bypass and in addition has a known ulcer which she is to have surgery on this week. Based on his past medical history and using shared medical decision making with the patient and her they were both sent for a CAT scan of the abdomen and pelvis. Due to the patient's past gastric bypass a quick oral prep was initiated. The patient was given Dilaudid for her pain in the emergency department. The patient was given a normal saline bolus 2 and started on a Protonix bolus and drip. She was typed and screened for 2 units of packed red blood cells. I did discuss her case with Dr. Yancey the on-call surgeon for [facility] who readily accepted the patient. I do feel that the patient at this point is safe enough to be transferred via ambulance. Both patient and were in agreement with the treatment plan. Medication Reconcilliation Current Medication List: was personally reviewed by me Blood Pressure Screening Patient's blood pressure: Low blood pressure Impression Primary Impression: Rectal bleed Additional Impression: Anemia Critical Care I have personally spent greater than 90 minutes of critical care time in the direct management of this patient. This includes bedside care, interpretation of diagnostic studies, and testing, discussion with consultants, patient, and family members, and other required patient management activities. This 90 minutes is in excess of all separately billable procedures. Scribe Attestation The scribe's documentation has been prepared under my direction and personally reviewed by me in its entirety. I confirm that the note above accurately reflects all work, treatment, procedures, and medical decision making performed by me. Departure Information Dispostion Transfer Acute Care Facility Referrals Yulia Gilliam (PCP) Patient Instructions My [facility] Problem Qualifiers Additional Impression: Anemia Anemia type: unspecified type Qualified Codes: D64.9 - Anemia, unspecified
[2017-12-03 17:38] LABS: ISTAT CREATININE 0.6 mg/dl (0.6-1.3); ISTAT IONIZED CALCIUM 1.09 mmol/l (1.12-1.32); ISTAT POTASSIUM 4.3 mEq/L (3.3-5.0)
[2017-12-03 17:44] LABS: PTT PATIENT 20.1 SECONDS (21.0-31.0)
[2017-12-03] MEDS ORDERED: OPTIRAY 320 IV PRN (17:45)
[2017-12-03] MEDS ORDERED: PANTOprazole INJ 80 MG in DEXTROSE 5% 100ML IV ONE (17:45)
[2017-12-03 17:46] LABS: ALT/SGPT 25 U/L (12-78); AST/SGOT 13 U/L (15-37); BLOOD UREA NITROGEN 29 mg/dl (7-18); CALCIUM 7.8 mg/dl (8.5-10.1); CARBON DIOXIDE 27 mmol/L (21-32); CREATININE 0.69 mg/dl (0.60-1.20); GLUCOSE 130 mg/dl (70-99); LIPASE 48 U/L (73-393); POTASSIUM 4.3 mmol/L (3.5-5.1); SODIUM 139 mmol/L (136-145)
--- NOTE | 2017-12-03 17:46 | DIAGNOSTIC IMAGING REPORT ---
CHEST ONE VIEW PORTABLE HISTORY: Rectal bleeding. COMPARISON: Chest 12/31/2011. FINDINGS: The lungs are clear. Cardiac silhouette is normal in size. No pleural effusions. No pneumothorax. IMPRESSION: No acute process. Electronically signed by: Jesus Alberto Shah M.D. 12/03/2017 5:45 PM Dictated Date/Time: 12/03/2017 5:44 PM
[2017-12-03 17:49] LABS: ALKALINE PHOSPHATASE 82 U/L (45-117); TOTAL PROTEIN 5.8 gm/dl (6.4-8.2)
[2017-12-03] MEDS ORDERED: PANTOprazole INJ 40 MG in DEXTROSE 5% 100ML IV SCH (18:00)
[2017-12-03] MEDS ORDERED: ONDANSETRON INJ 2 MG/ML 2 ML VIAL IV STA (18:20)
[2017-12-03] MEDS ORDERED: HYDROmorphone INJ 0.5 MG/0.5 ML SYR IV STA (18:20)
[2017-12-03] MEDS ORDERED: PROMETHAZINE HCL INJ 25 MG in SODIUM CHLORIDE 0.9% 50ML 50 ML IV STA (18:43)
[2017-12-03] MEDS ORDERED: HYDROmorphone INJ 1 MG/ML SYR IV STA (18:43)
--- NOTE | 2017-12-03 18:43 | DIAGNOSTIC IMAGING REPORT ---
ABDOMEN AND PELVIS CT WITH IV CONTRAST CT DOSE: 413.11 mGy.cm HISTORY: Pt c/o rectal bleed, generalized abdominal pain TECHNIQUE: Multiaxial CT images of the abdomen and pelvis were performed following the use of intravenous contrast. A dose lowering technique was utilized adhering to the principles of ALARA. COMPARISON STUDY: Abdomen CT 05/08/2017. FINDINGS: The lung bases are essentially clear. Groundglass densities within the right lower lobe medial may represent scarring. No pneumoperitoneum. No pneumatosis. No fractures within the visualized osseous structures. Cholecystectomy. The liver, pancreas, spleen, and adrenal glands are unremarkable. Normal left kidney. No hydronephrosis. Stable 6 mm hypodense lesion within the right kidney. This is too small to characterize. No retroperitoneal lymphadenopathy. No pelvic free fluid. The bladder, uterus, bilateral ovaries are within normal limits. There is a 1.9 cm left ovarian cyst normal appendix. Status post gastric bypass. Contrast extends into the jejunostomy loop. No dilated loops of small bowel to suggest a small bowel obstruction. No bowel wall thickening. There is focal mild dilatation of the fundus of the excluded portion of the stomach best seen on image 52 within the left upper quadrant. There is filled with gas and fluid. IMPRESSION: 1. Prior gastric bypass. The fundus of the excluded portion of the stomach within the left upper quadrant adjacent to the suture material appears to be mildly dilated and partially fluid-filled compared to the remaining portions of the excluded stomach. This could be transient. However, if the patient is complaining of left upper quadrant pain then a partial obstruction at the gastric fundus cannot be excluded. Endoscopy can be further further evaluation. 2. No definite thickening within the small or large bowel. 3. Normal appendix. 4. Cholecystectomy. Electronically signed by: Jesus Alberto Shah M.D. 12/03/2017 6:41 PM Dictated Date/Time: 12/03/2017 6:30 PM
[2017-12-03] MEDS ORDERED: ONDA4TAB9 PO (18:44)
[2017-12-03] MEDS ORDERED: ATR25 PO (18:44)
[2017-12-03] MEDS ORDERED: CITA40TA4 PO (18:44)
[2017-12-03] MEDS ORDERED: LANS30CA12 PO (18:44)
[2017-12-03] MEDS ORDERED: PROAIR HFA INH (18:44)
[2017-12-03] MEDS ORDERED: SUCR1TAB29 PO (18:44)
[2017-12-03 20:00] VITALS: BP 96/54; PULSE 72; O2SAT 98
== END 2017-12-03 20:30 | disposition short-term general hospital (02) ==
LOC: C.EDB 17:09
DX: K62.5 Hemorrhage of anus and rectum (principal); D64.9 Anemia, unspecified; Z88.5 Allergy status to narcotic agent

== ENCOUNTER 2023-01-31 14:36 | Observation (INO) ==
[2023-01-31 15:28] LABS: Basophils # (auto) 0.08 K/uL (0-0.2); Basophils % (auto) 0.7 %; Eosinophils # (auto) 0.33 K/uL (0-0.50); Hematocrit (blood only) 44.8 % (37.0-47.0); Hemoglobin 14.6 g/dl (12.0-16.0); Immature Granulocytes # (auto) 0.02 K/uL (0.01-0.20); Immature Granulocytes % (auto) 0.2 %; Lymphocytes # (auto) 2.09 K/uL (1.2-3.4); Lymphocytes % (auto) 18.9 %; Mean Corpuscular Hemoglobin 29.2 pg (25.0-34.0); Mean Corpuscular Hgb Conc 32.6 g/dL (32.0-36.0); Mean Corpuscular Volume 89.6 fL (80.0-100.0); Mean Platelet Volume 11.1 fL (9.4-12.4); Monocytes # (auto) 0.68 K/uL (0.11-0.59); Monocytes % (auto) 6.2 %; Neutrophils # (auto) 7.83 K/uL (1.40-6.50); Platelet Count 221 K/uL (130-400); RDW Coefficient of Variation 13.4 % (11.5-14.5); RDW Standard Deviation 43.8 fL (36.4-46.3); White Blood Count 11.03 K/ul (4.8-10.8)
[2023-01-31 15:37] LABS: Albumin Globulin Ratio 1.6 (0.9-2); Albumin Level 4.5 gm/dl (3.4-5.0); BUN Creatinine Ratio 12.3 (10-20); Bilirubin,Total 0.5 mg/dl (0.2-1.0); Calcium 9.6 mg/dl (8.6-10.3); Creatinine Clr Calc Pharmacy 82.9 ml/min; Est GFR (African American) 98.2 ml/min; Est GFR (Non-African American) 84.7 ml/min; Globulin 2.9 gm/dl (2.5-4.0); Total Protein 7.4 gm/dl (6.0-8.3)
[2023-01-31 16:01] LABS: Appearance Urine Cloudy (Clear); Bacteria Urine Automated 1+ (Negative); Bilirubin Urine Negative (Negative); Blood Urine 2+ (Negative); Color Urine Dark Yellow; Glucose Urine UA Negative (Negative); Ketones Urine Trace (Negative); Leukocyte Esterase Urine 2+ (Negative); Nitrite Urine Positive (Negative); RBC Urine Automated >30 /hpf (0-4); Specific Gravity Urine 1.016 (1.000-1.030); Urobilinogen Urine Negative (Negative); WBC Urine Automated >30 /hpf (0-5)
[2023-01-31 16:05] LABS: Protein Urine 1+ (Negative)
--- NOTE | 2023-01-31 16:37 | CT Scan Report ---
ABDOMEN AND PELVIS CT WITHOUT CONTRAST CT DOSE: 1257.11 mGy.cm HISTORY: Generalized abdominal pain. Hematuria. poss k stones TECHNIQUE: Multiaxial CT images of the abdomen and pelvis were performed without contrast. A dose lo wering technique was utilized adhering to the principles of ALARA. COMPARISON STUDY: Abdomen and pelvis CT 12/03/2017. FINDINGS: The lung bases are essentially clear. No pneumoperitoneum. No pneumatosis. No acute fractur es identified. An L1 vertebral body hemangioma is again noted. Tiny fat-containing midline supra umbi lical an infraumbilical hernias. Cholecystectomy. Prior Isaac-en-Y gastric bypass again noted. The une nhanced liver, spleen, adrenal glands, and pancreas are unremarkable. No retroperitoneal lymphadenopa thy. Normal caliber abdominal aorta. No renal or ureteral stones. No hydronephrosis. There is a 12 mm exophytic lesion within the right kidney and image 145. This does not clearly represent a simple cys t and could represent a solid renal mass. Mild bilateral perinephric fat stranding. There is urotheli al thickening within the bilateral ureters with periureteral edema/fat stranding. There is also bladd er wall thickening with adjacent fat stranding/edema. Therefore, these findings are consistent with a bilateral pyelitis/pyelonephritis with an associated cystitis. The uterus and adnexa are unremarkabl e. No pelvic free fluid. Suboptimal evaluation for bowel pathology due to the lack of intravenous and oral contrast. However, there is no definite bowel wall thickening or obstruction. Normal appendix. Colonic diverticulosis. No evidence for acute diverticulitis. IMPRESSION: 1. Above findings consistent with a bilateral pyelitis/pyelonephritis with an associated cystitis. Re commend correlation with urinalysis. 2. No renal or ureteral stones. No hydronephrosis. 3. A 12 mm exophytic lesion within the right kidney which does not clearly represent a simple cyst. T herefore, this is concerning for a solid renal mass. Follow-up nonemergent dedicated renal CT or MRI is recommended for further evaluation. 4. No bowel wall thickening or obstruction. 5. Normal appendix. ACT 112: Positive. There are findings on this exam that require communication between the performing entity and the patient following Patient Test Result Information Act ([place] Act 112) guidelines. Electronically signed by: Jesus Alberto Shah M.D. 01/31/2023 4:35 PM
--- NOTE | 2023-01-31 16:57 | Emergency Department Note ---
Impression & Plan Pyelonephritis ADMIT ED Provider Note HPI: The patient is a 52-year-old female who presents emergency department with a chief complaint of bilateral flank pain and dysuria that is been ongoing for the past 3 days. Patient states that her symptoms seem to have worsened acutely overnight into this morning. Patient states she discussed her symptoms with her outpatient provider and was advised to come to the emergency department to rule out infection or kidney stones. On arrival here to the ED the patient is hemodynamically stable, she is in no acute distress on my initial assessment. ROS: - Per HPI Differential Diagnosis: Kidney stone, pyelonephritis, urinary tract infection, musculoskeletal back pain/flank pain, amongst other potential pathologies. *Outpatient medications and allergy history reviewed. *Pertinent external medical records reviewed. PE: General: Alert HEENT: Normocephalic, trachea midline Eyes: Extraocular eye movement is intact, no scleral erythema Pulmonary: Clear to auscultation bilaterally, no wheezing Cardio: Regular rate and rhythm GI: Abdomen is soft to palpation : No suprapubic tenderness, there is moderate bilateral CVA tenderness to palpation MSK: No evidence of trauma or malformation of the extremities, no edema Skin: No evidence of rash Neuro: Alert, no focal deficits Psychiatric: Cooperative residential monitor: (As interpreted by myself): - An order was placed for continuous cardiac monitoring - Patient was noted to be in sinus rhythm with a rate of 70 Interventions provided in ED: -IV Tylenol, IV ceftriaxone Medical Decision Making: Patient presented to the emergency department with dysuria and flank pain bilaterally. On arrival here to the ED the patient appears to be in no acute distress, IV was established and lab work obtained, patient was maintained on awake overnight monitor. Lab work does show a mild leukocytosis at 11.03, blood cultures were ordered, hemoglobin is stable, platelet count within normal limits, CMP does not show any evidence of acute kidney injury, urinalysis shows evidence of infection, nitrite positive, leukocyte esterase 2+, significant pyuria. CT imaging shows evidence of bilateral pyelitis and pyelonephritis. Also likely an element of cystitis. There is also incidental finding of solid- appearing mass lesion to the right kidney measuring approximately 12 mm in diameter. Patient was informed of this finding which will require further nonemergent imaging for further work-up. Patient expressed an agreement and understanding of this. Given this in combination of CT imaging findings with findings on urinalysis, patient was treated with IV ceftriaxone. Patient was given IV Tylenol for pain secondary to extensive allergy profile, on my reassessment patient states that she feels unwell to go home and would like to be admitted. Case was discussed with the on-call midlevel provider for the [facility] service and the patient was placed for admission in stable condition. Consultants: [facility] service Disposition discussion held by myself with: Patient Diagnosis: 1. Bilateral pyelonephritis 2. Urinary tract infection, acute 3. Dysuria, acute 4. Leukocytosis, acute 5. Bilateral flank pain, acute 6. Right-sided renal mass, nonspecific Disposition: Admission Jason Hines DO Emergency Medicine Past Med/Surg History Medical History (Updated 01/31/23 @ 20:14 by Jason Hines DO) Anxiety Depression Hypothyroidism Migraine variant Surgical History H/O gastric bypass Hx laparoscopic cholecystectomy Family History Other Asthma Heart disease Hypertension Social History (Updated 01/31/23 @ 18:16 by Irene Alicia PA-C) Smoking Status: Former smoker Smoking End Date: 2015; Hx Alcohol Use: Yes Alcohol Intake Frequency: Monthly or Less Feels Safe at Home: Yes Allergies Allergies Allergy/AdvReac Type Severity Reaction Status Date / Time codeine Allergy Intermediate hives Verified 09/03/21 16:28 dextromethorphan Allergy Intermediate HIVES Verified 09/03/21 16:28 doxylamine Allergy Intermediate HIVES Verified 09/03/21 16:28 morphine Allergy Intermediate RASH Verified 09/03/21 16:28 pseudoephedrine Allergy Intermediate HIVES Verified 09/03/21 16:28 ibuprofen AdvReac Unknown D/T Verified 09/03/21 16:28 GASTRIC BYPASS--NOT TO TAKE. Ethanol Allergy Intermediate HIVES Uncoded 09/03/21 16:28 Home Meds Home Medications Medication Instructions Recorded Confirmed aripiprazole 5 mg tablet (Abilify) 5 mg PO DAILY 09/03/21 01/31/23 cyanocobalamin (vitamin B-12) 1,000 mcg IM .[id number] 09/03/21 01/31/23 1,000 mcg/mL injection solution doxepin 50 mg capsule 50 mg PO HS 09/03/21 01/31/23 ergocalciferol (vitamin D2) 1,250 1,250 mcg PO 3XWK 09/03/21 01/31/23 mcg (50,000 unit) capsule (Vitamin D2) gabapentin 600 mg tablet 600 mg PO HS 09/03/21 01/31/23 multivitamin 1 tab PO DAILY 09/03/21 01/31/23 omeprazole 20 mg tablet,delayed 20 mg PO DAILY 09/03/21 01/31/23 release semaglutide 0.25 mg or 0.5 mg (2 0.5 mg subcut WK 09/03/21 01/31/23 mg/1.5 mL) subcutaneous pen injector (Ozempic) topiramate 25 mg tablet (Topamax) See Rx Instructions .Route .COMPLEX 09/03/21 01/31/23 bupropion HCl 150 mg 24 hr tablet, 150 mg PO QAM 01/31/23 01/31/23 extended release cholecalciferol (vitamin D3) 1,250 1,250 mcg PO WK 01/31/23 01/31/23 mcg (50,000 unit) capsule levothyroxine 50 mcg tablet 50 mcg PO DAILY 01/31/23 01/31/23 lorazepam 0.5 mg tablet 0.5 mg PO HS 01/31/23 01/31/23 nystatin 100,000 unit/gram topical 1 applic topical TID 01/31/23 01/31/23 powder zinc sulfate 50 mg zinc (220 mg) 50 mg PO DAILY 01/31/23 01/31/23 capsule Results & Data (ED) Vital Signs Vital Signs - 24 hr 01/31/23 14:40 01/31/23 17:18 Temperature 36.6 C Temperature Source Temporal Artery Scan Pulse Rate 83 Pulse Rate [Finger] 69 Respiratory Rate 18 16 Respiratory Effort / Characteristics Non-Labored Respiratory Depth Normal Respiratory Pattern Regular Blood Pressure 125/79 Blood Pressure [Right Arm] 129/95 Blood Pressure Mean 94 Blood Pressure Mean [Right Arm] 106 Blood Pressure Position Sitting Pulse Oximetry 97 96 Oxygen Delivery Method Room Air Room Air Sepsis Recent Fever Within 48 Hours No Sepsis New/Unexplained Change in Mental Status No Sepsis Action Taken by Nursing No Action Required Laboratory Data 01/31/23 14:57 01/31/23 14:57 Lab Results 01/31/23 01/31/2323 Range/Units 14:57 14:57 14:57 WBC 11.03 H (4.8-10.8) K/ul RBC 5.00 (4.20-5.40) M/uL Hgb 14.6 (12.0-16.0) g/dl Hct 44.8 (37.0-47.0) % MCV 89.6 (80.0-100.0) fL MCH 29.2 (25.0-34.0) pg MCHC 32.6 (32.0-36.0) g/dL RDW Std Deviation 43.8 (36.4-46.3) fL RDW Coeff of Shelli 13.4 (11.5-14.5) % Plt Count 221 (130-400) K/uL MPV 11.1 (9.4-12.4) fL Immature Gran % (Auto) 0.2 % Neut % (Auto) 71.0 % Lymph % (Auto) 18.9 % [place] % (Auto) 6.2 % Eos % (Auto) 3.0 % Baso % (Auto) 0.7 % Neut # (Auto) 7.83 H (1.40-6.50) K/uL Lymph # (Auto) 2.09 (1.2-3.4) K/uL [place] # (Auto) 0.68 H (0.11-0.59) K/uL Eos # (Auto) 0.33 (0-0.50) K/uL Baso # (Auto) 0.08 (0-0.2) K/uL Immature Gran # (Auto) 0.02 (0.01-0.20) K/uL Sodium 140 (136-145) mmol/L Potassium 4.0 (3.5-5.1) mmol/L Chloride 109 H (98-107) mmol/L Carbon Dioxide 26 (21-32) mmol/L Anion Gap 5 (3-11) BUN 10 (6-23) mg/dl Creatinine 0.81 (0.6-1.2) mg/dl Est Cr Clr Drug Dosing 82.9 ml/min Est GFR ( Amer) 98.2 ml/min Est GFR (Non-Af Amer) 84.7 ml/min BUN/Creatinine Ratio 12.3 (10-20) Glucose 99 (70-99(Fasting)) mg/dl Calcium 9.6 (8.6-10.3) mg/dl Total Bilirubin 0.5 (0.2-1.0) mg/dl AST 17 (13-39) U/L ALT 19 (7-52) U/L Alkaline Phosphatase 98 (34-104) U/L Total Protein 7.4 (6.0-8.3) gm/dl Albumin 4.5 (3.4-5.0) gm/dl Globulin 2.9 (2.5-4.0) gm/dl Albumin/Globulin Ratio 1.6 (0.9-2) Urine Color Dark Yellow Urine Appearance Cloudy A (Clear) Urine pH 8.0 H (4.5-7.5) Ur Specific [place] 1.016 (1.000-1.030) Urine Protein 1+ H (Negative) Urine Glucose (UA) Negative (Negative) Urine Ketones Trace H (Negative) Urine Blood 2+ H (Negative) Urine Nitrite Positive A (Negative) Urine Bilirubin Negative (Negative) Urine Urobilinogen Negative (Negative) Ur Leukocyte Esterase 2+ H (Negative) Urine WBC (Auto) >30 H (0-5) /hpf Urine RBC (Auto) >30 H (0-4) /hpf U Hyaline Cast (Auto) 1-5 (0-5) /lpf U Epithel Cells (Auto) 5-10 H (0-5) /lpf Urine Bacteria (Auto) 1+ H (Negative) SARS-CoV-2, RNA, NAAT (NEGATIVE) 01/31/23 Range/Units 17:25 WBC (4.8-10.8) K/ul RBC (4.20-5.40) M/uL Hgb (12.0-16.0) g/dl Hct (37.0-47.0) % MCV (80.0-100.0) fL MCH (25.0-34.0) pg MCHC (32.0-36.0) g/dL RDW Std Deviation (36.4-46.3) fL RDW Coeff of Shelli (11.5-14.5) % Plt Count (130-400) K/uL MPV (9.4-12.4) fL Immature Gran % (Auto) % Neut % (Auto) % Lymph % (Auto) % [place] % (Auto) % Eos % (Auto) % Baso % (Auto) % Neut # (Auto) (1.40-6.50) K/uL Lymph # (Auto) (1.2-3.4) K/uL [place] # (Auto) (0.11-0.59) K/uL Eos # (Auto) (0-0.50) K/uL Baso # (Auto) (0-0.2) K/uL Immature Gran # (Auto) (0.01-0.20) K/uL Sodium (136-145) mmol/L Potassium (3.5-5.1) mmol/L Chloride (98-107) mmol/L Carbon Dioxide (21-32) mmol/L Anion Gap (3-11) BUN (6-23) mg/dl Creatinine (0.6-1.2) mg/dl Est Cr Clr Drug Dosing ml/min Est GFR ( Amer) ml/min Est GFR (Non-Af Amer) ml/min BUN/Creatinine Ratio (10-20) Glucose (70-99(Fasting)) mg/dl Calcium (8.6-10.3) mg/dl Total Bilirubin (0.2-1.0) mg/dl AST (13-39) U/L ALT (7-52) U/L Alkaline Phosphatase (34-104) U/L Total Protein (6.0-8.3) gm/dl Albumin (3.4-5.0) gm/dl Globulin (2.5-4.0) gm/dl Albumin/Globulin Ratio (0.9-2) Urine Color Urine Appearance (Clear) Urine pH (4.5-7.5) Ur Specific [place] (1.000-1.030) Urine Protein (Negative) Urine Glucose (UA) (Negative) Urine Ketones (Negative) Urine Blood (Negative) Urine Nitrite (Negative) Urine Bilirubin (Negative) Urine Urobilinogen (Negative) Ur Leukocyte Esterase (Negative) Urine WBC (Auto) (0-5) /hpf Urine RBC (Auto) (0-4) /hpf U Hyaline Cast (Auto) (0-5) /lpf U Epithel Cells (Auto) (0-5) /lpf Urine Bacteria (Auto) (Negative) SARS-CoV-2, RNA, NAAT NEGATIVE (NEGATIVE) Administered Medications Sodium Chloride (Nss 1000ml) 1,000 mls @ 125 mls/hr IV .Q8H JOAQUINA Stop: 02/01/23 01:59 Last Admin: 01/31/23 18:32 Dose: 125 mls/hr Documented By: KT Pantoprazole Sodium 40 mg/ (Syringe) 10 mls @ 5 mls/min IV DAILY JOAQUINA Stop: 03/02/23 17:59 Last Admin: 01/31/23 18:32 Dose: 5 mls/min Documented By: KT Discontinued Medications Ceftriaxone Sodium (Rocephin) 2,000 mg in 70 mls @ 140 mls/hr IV NOW STA Stop: 01/31/23 17:27 Last Infusion: 01/31/23 18:03 Dose: 0 mls/hr Documented By: Admin: 01/31/23 17:16 Dose: 140 mls/hr Documented By: KT Acetaminophen (Ofirmev) 1,000 mg in 100 mls @ 400 mls/hr IV NOW STA Stop: 01/31/23 17:16 Last Infusion: 01/31/23 17:59 Dose: 0 mls/hr Documented By: Admin: 01/31/23 17:27 Dose: 400 mls/hr Documented By: KT Imaging Data Radiologist's Impression: Abdomen/Pelvis CT 01/31/23 15:[address] WITHOUT CONTRAST CT DOSE: 1257.11 mGy.cm HISTORY: Generalized abdominal pain. Hematuria. poss k stones TECHNIQUE: Multiaxial CT images of the abdomen and pelvis were performed without contrast. A dose lowering technique was utilized adhering to the principles of ALARA. COMPARISON STUDY: Abdomen and pelvis CT 12/03/2017. FINDINGS: The lung bases are essentially clear. No pneumoperitoneum. No pneumatosis. No acute fractures identified. An L1 vertebral body hemangioma is again noted. Tiny fat-containing midline supra umbilical an infraumbilical hernias. Cholecystectomy. Prior Isaac-en-Y gastric bypass again noted. The unenhanced liver, spleen, adrenal glands, and pancreas are unremarkable. No retroperitoneal lymphadenopathy. Normal caliber abdominal aorta. No renal or ureteral stones. No hydronephrosis. There is a 12 mm exophytic lesion within the right kidney and image 145. This does not clearly represent a simple cyst and could represent a solid renal mass. Mild bilateral perinephric fat stranding. There is urothelial thickening within the bilateral ureters with periureteral edema/fat stranding. There is also bladder wall thickening with adjacent fat stranding/edema. Therefore, these findings are consistent with a bilateral pyelitis/pyelonephritis with an associated cystitis. The uterus and adnexa are unremarkable. No pelvic free fluid. Suboptimal evaluation for bowel pathology due to the lack of intravenous and oral contrast. However, there is no definite bowel wall thickening or obstruction. Normal appendix. Colonic diverticulosis. No evidence for acute diverticulitis. IMPRESSION: 1. Above findings consistent with a bilateral pyelitis/pyelonephritis with an associated cystitis. Recommend correlation with urinalysis. 2. No renal or ureteral stones. No hydronephrosis. 3. A 12 mm exophytic lesion within the right kidney which does not clearly represent a simple cyst. Therefore, this is concerning for a solid renal mass. Follow-up nonemergent dedicated renal CT or MRI is recommended for further evaluation. 4. No bowel wall thickening or obstruction. 5. Normal appendix. ACT 112: Positive. There are findings on this exam that require communication between the performing entity and the patient following Patient Test Result Information Act ([place] Act 112) guidelines. Electronically signed by: Jesus Alberto Shah M.D. 01/31/2023 4:35 PM Discharge Plan Visit Data Chief Complaint: Kidney Stone Stated Complaint: DOC WORRIED SHE HAS KIDNEY STONES ED Provider: Jason Hines Discharge Problem: Pyelonephritis Patient Disposition: Admitted As Inpatient Discharge Instructions Interventions: ED Discharge Assessment Last Done: 01/31/23 19:37
[2023-01-31] MEDS ORDERED: cefTRIAXone SODIUM 2,000 MG/70 ML BAG IV STA (16:58)
[2023-01-31] MEDS ORDERED: ACETAMINOPHEN 1,000 MG/100 ML VIAL IV STA (17:02)
--- NOTE | 2023-01-31 17:43 | History & Physical Report ---
Date of Service January 31, 2023 Assessment & Plan (1) Acute pyelitis: (2) Complicated UTI (urinary tract infection): (3) Renal mass: (4) Hypothyroidism: (5) Jejunal ulcer: (6) Depression: (7) Anxiety: (8) Migraine variant: Plan This is a 52yo F with a PMH of depression, anxiety, hypothyroidism, history of gastric bypass, history of migraine and recent diagnosis of non-bleeding jejunal ulcers who presents with lower abdominal pain and new urinary symptoms and was found to have acute bilateral pyelitis. Acute bilateral pyelitis Complicated UTI Afebrile, hemodynamically stable. WBC 11k, UA abnormal CT abd/pelvis with findings consistent with a bilateral pyelitis/pyelonephritis with an associated cystitis. Recommend correlation with urinalysis. No renal or ureteral stones. No hydronephrosis Started on Rocephin, plan to continue IV fluids, scheduled Tylenol, avoid NSAIDs given h/o gastric bypass and current jejunal ulcers, adding PRN Pyridium Right kidney mass Incidental finding on CT abd/pelvis of a 12 mm exophytic lesion within the right kidney which does not clearly represent a simple cyst. Therefore, this is concerning for a solid renal mass Follow-up nonemergent dedicated renal CT or MRI is recommended for further evaluation Jejunal ulcers EGD from 01/27 revealed a few nonbleeding jejunal ulcers and patient was started on Prilosec. IV PPI while admitted, avoid nsaids History of gastric bypass Continue multivitamin, Vit D, received B12 injections as out-patient Depression Anxiety Continue Abilify, bupropion, Doxepin, gabapentin, PRN ativan History of migraine headaches Continue Topamax DVT Ppx: SCDs Code status: FULL PCP: YUMIKO Gilliam Dispo: Admitted to Patient seen in collaboration with Dr. Flores. Please see addendum. I spent a total of 75 minutes coordinating, documenting, and providing care for this patient excluding time spent in the performance of separately billed services. History of Present Illness Chief Complaint: Lower abd. and b/l flank pain + dysuria Primary Care Provider: Yulia Gilliam PA-C This is a 52yo F with a PMH of depression, anxiety, hypothyroidism, history of gastric bypass, history of migraine and recent diagnosis of non-bleeding jejunal ulcers who presents with lower abdominal pain and new urinary symptoms. Patient had upper endoscopy performed on Saturday 01/27 and was found to have a few nonbleeding jejunal ulcers and was started on Prilosec. Developed increased lower abdominal pain yesterday with increased urinary frequency and urgency. Was directed by PCP to present to ED today for further evaluation of infection or kidney stones. Patient denies any fever, chills or lightheadedness. No nausea or vomiting. Denies any history of UTIs or kidney stones in the past. No CP, SOB, N/V, diarrhea or constipation. Allergies Allergy/AdvReac Type Severity Reaction Status Date / Time codeine Allergy Intermediate hives Verified 09/03/21 16:28 dextromethorphan Allergy Intermediate HIVES Verified 09/03/21 16:28 doxylamine Allergy Intermediate HIVES Verified 09/03/21 16:28 morphine Allergy Intermediate RASH Verified 09/03/21 16:28 pseudoephedrine Allergy Intermediate HIVES Verified 09/03/21 16:28 ibuprofen AdvReac Unknown D/T Verified 09/03/21 16:28 GASTRIC BYPASS--NOT TO TAKE. Ethanol Allergy Intermediate HIVES Uncoded 09/03/21 16:28 Home Medications Medication Instructions Recorded Confirmed Type aripiprazole 5 mg tablet (Abilify) 5 mg PO DAILY 09/03/21 01/31/23 History cyanocobalamin (vitamin B-12) 1,000 mcg IM .[id number] 09/03/21 01/31/23 History 1,000 mcg/mL injection solution doxepin 50 mg capsule 50 mg PO HS 09/03/21 01/31/23 History ergocalciferol (vitamin D2) 1,250 1,250 mcg PO 3XWK 09/03/21 01/31/23 History mcg (50,000 unit) capsule (Vitamin D2) gabapentin 600 mg tablet 600 mg PO HS 09/03/21 01/31/23 History multivitamin 1 tab PO DAILY 09/03/21 01/31/23 History omeprazole 20 mg tablet,delayed 20 mg PO DAILY 09/03/21 01/31/23 History release semaglutide 0.25 mg or 0.5 mg (2 0.5 mg subcut WK 09/03/21 01/31/23 History mg/1.5 mL) subcutaneous pen injector (Ozempic) topiramate 25 mg tablet (Topamax) See Rx Instructions .Route .COMPLEX 09/03/21 01/31/23 History bupropion HCl 150 mg 24 hr tablet, 150 mg PO QAM 01/31/23 01/31/23 History extended release cholecalciferol (vitamin D3) 1,250 1,250 mcg PO WK 01/31/23 01/31/23 History mcg (50,000 unit) capsule levothyroxine 50 mcg tablet 50 mcg PO DAILY 01/31/23 01/31/23 History lorazepam 0.5 mg tablet 0.5 mg PO HS 01/31/23 01/31/23 History nystatin 100,000 unit/gram topical 1 applic topical TID 01/31/23 01/31/23 History powder zinc sulfate 50 mg zinc (220 mg) 50 mg PO DAILY 01/31/23 01/31/23 History capsule Past Med/Surg History Medical History (Updated 01/31/23 @ 18:20 by Irene Alicia PA-C) Anxiety Depression Hypothyroidism Migraine variant Surgical History H/O gastric bypass Hx laparoscopic cholecystectomy Family History Other Asthma Heart disease Hypertension Social History (Updated 01/31/23 @ 18:16 by Irene Alicia PA-C) Smoking Status: Former smoker Smoking End Date: 2015; Hx Alcohol Use: Yes Alcohol Intake Frequency: Monthly or Less Feels Safe at Home: Yes Review of Systems Review of Systems: At least ten systems reviewed and negative except as noted in the HPI. Physical Exam Physical Exam: Please see Dr. Flores's addendum for physical exam. Results & Data Results & Data Vital Signs (Past 12 Hours) Vital Signs Temp Pulse Pulse Resp BP BP Pulse Ox 01/31/23 17:18 69 16 129/95 96 01/31/23 14:40 36.6 C 83 18 125/79 97 O2 Del Method 01/31/23 17:18 Room Air 01/31/23 14:40 Room Air Laboratory Results Short CBC 01/31/23 Range/Units 14:57 WBC 11.03 H (4.8-10.8) K/ul Hgb 14.6 (12.0-16.0) g/dl Hct 44.8 (37.0-47.0) % Plt Count 221 (130-400) K/uL BMP 01/31/23 14:57 Sodium 140 Potassium 4.0 Chloride 109 H Carbon Dioxide 26 BUN 10 Creatinine 0.81 Glucose 99 Calcium 9.6 Liver Function 01/31/23 Range/Units 14:57 Total Bilirubin 0.5 (0.2-1.0) mg/dl AST 17 (13-39) U/L ALT 19 (7-52) U/L Alkaline Phosphatase 98 (34-104) U/L Albumin 4.5 (3.4-5.0) gm/dl Urine 01/31/23 Range/Units 14:57 Urine Color Dark Yellow Urine Appearance Cloudy A (Clear) Urine pH 8.0 H (4.5-7.5) Ur Specific [place] 1.016 (1.000-1.030) Urine Protein 1+ H (Negative) Urine Glucose (UA) Negative (Negative) Diagnostic Findings Abdomen/Pelvis CT 01/31/23 15:[address] WITHOUT CONTRAST CT DOSE: 1257.11 mGy.cm HISTORY: Generalized abdominal pain. Hematuria. poss k stones TECHNIQUE: Multiaxial CT images of the abdomen and pelvis were performed without contrast. A dose lowering technique was utilized adhering to the principles of ALARA. COMPARISON STUDY: Abdomen and pelvis CT 12/03/2017. FINDINGS: The lung bases are essentially clear. No pneumoperitoneum. No pneumatosis. No acute fractures identified. An L1 vertebral body hemangioma is again noted. Tiny fat-containing midline supra umbilical an infraumbilical hernias. Cholecystectomy. Prior Isaac-en-Y gastric bypass again noted. The unenhanced liver, spleen, adrenal glands, and pancreas are unremarkable. No retroperitoneal lymphadenopathy. Normal caliber abdominal aorta. No renal or ureteral stones. No hydronephrosis. There is a 12 mm exophytic lesion within the right kidney and image 145. This does not clearly represent a simple cyst and could represent a solid renal mass. Mild bilateral perinephric fat stranding. There is urothelial thickening within the bilateral ureters with periureteral edema/fat stranding. There is also bladder wall thickening with adjacent fat stranding/edema. Therefore, these findings are consistent with a bilateral pyelitis/pyelonephritis with an associated cystitis. The uterus and adnexa are unremarkable. No pelvic free fluid. Suboptimal evaluation for bowel pathology due to the lack of intravenous and oral contrast. However, there is no definite bowel wall thickening or obstruction. Normal appendix. Colonic diverticulosis. No evidence for acute diverticulitis. IMPRESSION: 1. Above findings consistent with a bilateral pyelitis/pyelonephritis with an associated cystitis. Recommend correlation with urinalysis. 2. No renal or ureteral stones. No hydronephrosis. 3. A 12 mm exophytic lesion within the right kidney which does not clearly represent a simple cyst. Therefore, this is concerning for a solid renal mass. Follow-up nonemergent dedicated renal CT or MRI is recommended for further evaluation. 4. No bowel wall thickening or obstruction. 5. Normal appendix. ACT 112: Positive. There are findings on this exam that require communication between the performing entity and the patient following Patient Test Result Information Act ([place] Act 112) guidelines. Electronically signed by: Jesus Alberto Shah M.D. 01/31/2023 4:35 PM Supervising Physician Co-Signing Physician Notes Pt seen and examined by me, care coordinated w/ Mike. YUMIKO Alicia, pls refer to her note above for further detail. Pt is a 52 yo F with h/o depression, anxiety, hypothyroidism, history of gastric bypass, history of migraine and recent diagnosis of non-bleeding jejunal ulcers who presents with lower abdominal pain and new urinary symptoms. Patient denies any fever, chills, nausea or vomiting. Denies any history of UTIs or kidney stones in the past. Temp wnl. WBC 11K. CT abd/pelvis c/w b/l bilateral pyelitis/pyelonephritis with an associated cystitis, and Incidental finding of a 12 mm exophytic lesion within the right kidney. Patient was started on IV ceftriaxone in the ED. Currently she is lying in bed, in no acute distress. She is alert oriented answering appropriately. Lungs are clear to auscultation. Heart sounds regular. Abdomen soft, tender bilaterally in the flanks and lower abdomen, + bowel sounds. There is no lower extremity edema. Skin is warm and dry. Patient is moving extremities spontaneously without difficulty. Continue IV ceftriaxone. Follow urine culture and blood culture. Continue to closely monitor. Patient will need outpatient follow-up for renal mass. MD Mark
[2023-01-31] MEDS ORDERED: SODIUM CHLORIDE 0.9% 1000ML 1,000 ML IV SCH (18:00)
[2023-01-31] MEDS: PANTOprazole 40 MG in SYRINGE 0 ML IV SCH (18:32)
[2023-01-31] MEDS ORDERED: POLYETHYLENE (MIRALAX) 17 GM PACK PO PRN (20:08)
[2023-01-31] MEDS: DOXEPIN HCL 50 MG CAPSULE PO SCH (21:23)
[2023-01-31] MEDS: LORazepam 0.5 MG TAB PO SCH (21:31)
[2023-01-31] MEDS: GABAPENTIN 600 MG TAB PO SCH (21:31)
[2023-01-31] MEDS: NYSTATIN POWDER 15GM BTL EXT SCH (21:31)
[2023-01-31] MEDS: TOPIRAMATE 25 MG TAB PO SCH (21:32)
[2023-01-31] MEDS: PHENAZOPYRIDINE HCL 100 MG TAB PO PRN (21:38)
[2023-02-01] MEDS: ACETAMINOPHEN 500 MG TAB PO SCH ×3 (00:36→17:38)
[2023-02-01] MEDS: HYDROmorphone INJ 0.5 MG/0.5 ML SYR IV PRN ×2 (08:14→20:07)
[2023-02-01] MEDS: SODIUM CHLORIDE 0.9% 1000ML 1,000 ML IV SCH ×2 (08:14→15:46)
[2023-02-01] MEDS: PANTOprazole 40 MG in SYRINGE 0 ML IV SCH ×2 (08:20→08:21)
[2023-02-01] MEDS: ERGOCALCIFEROL 50,000 UNITS 1250 MCG CAP PO SCH (08:22)
[2023-02-01] MEDS: LEVOTHYROXINE SODIUM 50 MCG TABLET PO SCH (08:22)
[2023-02-01] MEDS: buPROPion XL 150 MG TABCR PO SCH (08:22)
[2023-02-01] MEDS: MULTIVITAMIN TAB PO SCH (08:22)
[2023-02-01] MEDS: ARIPiprazole 5 MG TAB PO SCH (08:22)
[2023-02-01] MEDS: NYSTATIN POWDER 15GM BTL EXT SCH ×3 (08:23→20:06)
[2023-02-01] MEDS: TOPIRAMATE 25 MG TAB PO SCH ×2 (08:23→20:07)
[2023-02-01] MEDS: ZINC SULFATE 220 MG CAPSULE PO SCH (08:23)
[2023-02-01 08:38] LABS: Hematocrit (blood only) 36.7 % (37.0-47.0); Hemoglobin 12.2 g/dl (12.0-16.0); Mean Corpuscular Hemoglobin 29.5 pg (25.0-34.0); Mean Corpuscular Hgb Conc 33.2 g/dL (32.0-36.0); Mean Corpuscular Volume 88.6 fL (80.0-100.0); Platelet Count 191 K/uL (130-400); RDW Coefficient of Variation 13.5 % (11.5-14.5); RDW Standard Deviation 43.8 fL (36.4-46.3); Red Blood Count 4.14 M/uL (4.20-5.40); White Blood Count 6.96 K/ul (4.8-10.8)
[2023-02-01 09:00] LABS: BUN Creatinine Ratio 17.5 (10-20); Calcium 8.8 mg/dl (8.6-10.3); Creatinine Clr Calc Pharmacy 106.4 ml/min; Est GFR (African American) 121.2 ml/min; Est GFR (Non-African American) 104.6 ml/min; Potassium 3.9 mmol/L (3.5-5.1)
[2023-02-01] MEDS ORDERED: SODIUM CHLORIDE 0.9% 500 ML IV ONE (12:09)
--- NOTE | 2023-02-01 14:36 | Urology Consultation ---
Date of Consultation February 01, 2023 Assessment & Plan (1) Complicated UTI (urinary tract infection): (2) Pyelonephritis: (3) Renal mass: Plan 52yo/F who presented with lower abdominal pain and new urinary symptoms admitted with UTI/Pyelo. CT abd/pelvis with findings consistent with a bilateral pyelitis/pyelonephritis with an associated cystitis, no renal or ureteral stones, no hydronephrosis. Also with incidental finding of a 12mm exophytic lesion within the right kidney which does not clearly represent a simple cyst. She remains afebrile, BP running low 93/60. Labs reviewed - Leukocytosis improved 11.03-6.96 today, hemoglobin 12.2, creatinine 0.63. Urine culture prelim gram positive cocci, blood culture pending. On Ceftriaxone. Voiding spontaneously, continue to monitor. Bladder scan prn. No intervention warranted. Continue antibiotics and tailor as culture data becomes available. Continue supportive care. We discussed the incidental finding of the 12mm right renal lesion and that she will need outpatient follow-up for this. Urology will continue to follow. History of Present Illness Attending Physician: Estiven Hammonds MD History of Present Illness 52-year-old female with a PMHx of depression, anxiety, hypothyroidism, history of gastric bypass, history of migraine and recent diagnosis of non-bleeding jejunal ulcers who presented with lower abdominal pain and new urinary symptoms. CT abdomen pelvis on arrival demonstrated mild bilateral perinephric stranding and urothelial thickening within the bilateral ureters as well as bladder wall thickening with adjacent stranding/edema consistent with bilateral pyelitis/pyelonephritis with associated cystitis. No renal or ureteral stones were noted. No hydronephrosis. A 12 mm exophytic lesion within the right kidney not clearly representing a simple cyst was also noted. On arrival to the ED she was afebrile and hemodynamically stable. Labs showing a mild leukocytosis and normal renal function. Urinalysis with 2+ blood, positive nitrate, 2+ LE, 1+ bacteria. Urine and blood cultures were collected. She was started on IV Rocephin. Patient was seen and examined at bedside this AM. She was awake and resting in bed on arrival. No acute distress. She denies fevers, chills, nausea, vomiting. She does report bilateral flank and suprapubic pain. Denies h ematuria. Some dysuria. Feels she is emptying her bladder well. She denies prior history of recurrent UTI. She does report seeing [facility] urology a few years ago for urinary s/s- had negative work-up at that time per her report. Allergies Allergy/AdvReac Type Severity Reaction Status Date / Time codeine Allergy Intermediate hives Verified 09/03/21 16:28 dextromethorphan Allergy Intermediate HIVES Verified 09/03/21 16:28 doxylamine Allergy Intermediate HIVES Verified 09/03/21 16:28 morphine Allergy Intermediate RASH Verified 09/03/21 16:28 pseudoephedrine Allergy Intermediate HIVES Verified 09/03/21 16:28 ibuprofen AdvReac Unknown D/T Verified 09/03/21 16:28 GASTRIC BYPASS--NOT TO TAKE. Ethanol Allergy Intermediate HIVES Uncoded 09/03/21 16:28 Home Medications Medication Instructions Recorded Confirmed Type aripiprazole 5 mg tablet (Abilify) 5 mg PO DAILY 09/03/21 01/31/23 History cyanocobalamin (vitamin B-12) 1,000 mcg IM .[id number] 09/03/21 01/31/23 History 1,000 mcg/mL injection solution doxepin 50 mg capsule 50 mg PO HS 09/03/21 01/31/23 History ergocalciferol (vitamin D2) 1,250 1,250 mcg PO 3XWK 09/03/21 01/31/23 History mcg (50,000 unit) capsule (Vitamin D2) gabapentin 600 mg tablet 600 mg PO HS 09/03/21 01/31/23 History multivitamin 1 tab PO DAILY 09/03/21 01/31/23 History omeprazole 20 mg tablet,delayed 20 mg PO DAILY 09/03/21 01/31/23 History release semaglutide 0.25 mg or 0.5 mg (2 0.5 mg subcut WK 09/03/21 01/31/23 History mg/1.5 mL) subcutaneous pen injector (Ozempic) topiramate 25 mg tablet (Topamax) See Rx Instructions .Route .COMPLEX 09/03/21 01/31/23 History bupropion HCl 150 mg 24 hr tablet, 150 mg PO QAM 01/31/23 01/31/23 History extended release cholecalciferol (vitamin D3) 1,250 1,250 mcg PO WK 01/31/23 01/31/23 History mcg (50,000 unit) capsule levothyroxine 50 mcg tablet 50 mcg PO DAILY 01/31/23 01/31/23 History lorazepam 0.5 mg tablet 0.5 mg PO HS 01/31/23 01/31/23 History nystatin 100,000 unit/gram topical 1 applic topical TID 01/31/23 01/31/23 History powder zinc sulfate 50 mg zinc (220 mg) 50 mg PO DAILY 01/31/23 01/31/23 History capsule Patient History Medical History (Updated 01/31/23 @ 20:14 by Jason Hines DO) Anxiety Depression Hypothyroidism Migraine variant Surgical History H/O gastric bypass Hx laparoscopic cholecystectomy Family History Other Asthma Heart disease Hypertension Social History (Updated 01/31/23 @ 18:16 by Irene Alicia PA-C) Smoking Status: Current every day smoker Smoking End Date: 2015; Hx Alcohol Use: Yes Alcohol type: wine Alcohol Intake Frequency: Monthly or Less Hx Substance Use: No Preferred Language: Italian Communication Ability: Effective Wedding Day Coordinator Required: No Beliefs That Will Affect Care: None Current Living Situation: Spouse Current Living Situation Comment: Lives with boyfriendm boyfriend's daughter, and son-in-law Feels Safe at Home: Yes Safety Concerns: Feels Safe At This Time Assistive Devices: None Review of Systems 2 Review of Systems: All systems reviewed & are unremarkable except as noted in HPI & below Physical Exam Constitutional: + ill appearing; no acute distress Neck: normal visual inspection Respiratory: normal respiratory effort; no respiratory distress and no labored breathing Gastrointestinal (Abdomen): Inspection/Auscultation: abdomen normal to inspection Musculoskeletal: Head/Neck/Chest: normocephalic Skin: No visible rashes or lesions to exposed skin areas Neurologic: moves all extremities and awake Psychiatric: A+Ox3, euthymic affect Results & Data Vital Signs (Past 12 Hours) Vital Signs Temp Pulse Resp BP Pulse Ox O2 Del Method 02/01/23 11:06 36.5 C 72 18 91/62 L 94 Room Air 02/01/23 07:27 36.6 C 61 16 92/59 L 94 Room Air PG Care Time/CCT Total # of Minutes Spent Total Time Spent with Patient: Total time spent is greater than 50% in coordination of care (as documented) at patient's floor/unit and/or counseling patient: Coding Level of Care Code 74555 IN/OBS CONSULT LVL 3,45M Diagnoses Complicated UTI (urinary tract infection) N39.0 Pyelonephritis N12 Renal mass N28.89
[2023-02-01] MEDS ORDERED: cefTRIAXone SODIUM 2,000 MG in DEXTROSE 5% 50 ML IV SCH (17:00)
--- NOTE | 2023-02-01 19:10 | Hospitalist Progress Note ---
Date of Service February 01, 2023 Assessment & Plan (1) Acute pyelitis: (2) Complicated UTI (urinary tract infection): (3) Renal mass: (4) Hypothyroidism: (5) Jejunal ulcer: (6) Depression: (7) Anxiety: (8) Migraine variant: Plan Patient is a 52 yr F with a PMH of depression, anxiety, hypothyroidism, history of gastric bypass, history of migraine and recent diagnosis of non-bleeding jejunal ulcers who presents with lower abdominal pain and new urinary symptoms and was found to have acute bilateral pyelitis. Acute pyelonephritis Complicated UTI Renal Mass --CT abd/pelvis with findings consistent with a bilateral pyelitis/pyelonephritis with an associated cystitis. Recommend correlation with urinalysis. No renal or ureteral stones. No hydronephrosis --Blood cultures: Negative to date -- Urine culture grew positive cocci Continue IV Rocephin Appreciate urology input Pain control Continue IV fluids As needed Pyridium for dysuria Bladder scan as needed, monitor for any obstruction Needs further evaluation of renal mass as outpatient H/O Gastric bypass Avoid NSAIDs Continue supplements Right kidney mass Incidental finding on CT abd/pelvis of a 12 mm exophytic lesion within the right kidney which does not clearly represent a simple cyst. Therefore, this is concerning for a solid renal mass Further management as outpatient Jejunal ulcers EGD from 01/27 revealed a few nonbleeding jejunal ulcers and patient was started on Prilosec. Continue PPI Depression Anxiety Continue Abilify, bupropion, Doxepin, gabapentin, PRN ativan History of migraine headaches Continue Topamax DVT Px: SCDs for now Code status: FULL CODE Admission and Anticipated Discharge Date Admission Date: January 31, 2023 Subjective Patient is seen and examined at bedside States having dizziness and flank pain radiating to groin Denies any chest pain, dyspnea, nausea, vomiting, hematuria No other complaints BP low today Review of Systems Review of Systems: All systems reviewed & are unremarkable except as noted in Subjective Physical Exam Physical Exam: Physical Exam: Vitals signs as noted above General Appearance:Moderately built and nourished, no apparent distress Head: normocephalic, Atraumatic Eyes: normal inspection, EOMI Neck: supple, Trachea midline Respiratory/Chest: Normal breath sounds, CTA, No accessory muscle use Cardiovascular: S1, S2, No murmur Abdomen/GI:Soft, Non tender, Bowel sounds present Extremities/Musculoskeletal:normal inspection, 1+ edema Neurologic/Psych:AAOX3, grossly no focal neurological deficits Skin: normal color, warm Results & Data Results & Data Vital Signs (Past 12 Hours) Vital Signs Temp Pulse Resp BP Pulse Ox O2 Del Method 02/01/23 17:46 36.6 C 68 18 112/74 98 Room Air 02/01/23 14:22 36.6 C 84 18 93/60 L 94 Room Air 02/01/23 12:45 100/60 02/01/23 11:06 36.5 C 72 18 91/62 L 94 Room Air 02/01/23 07:27 36.6 C 61 16 92/59 L 94 Room Air Laboratory Results Short CBC 02/01/23 Range/Units 08:00 WBC 6.96 (4.8-10.8) K/ul Hgb 12.2 (12.0-16.0) g/dl Hct 36.7 L (37.0-47.0) % Plt Count 191 (130-400) K/uL BMP 02/01/23 08:00 Sodium 141 Potassium 3.9 Chloride 113 H Carbon Dioxide 25 BUN 11 Creatinine 0.63 Glucose 79 Calcium 8.8
[2023-02-01] MEDS: DOXEPIN HCL 50 MG CAPSULE PO SCH (20:04)
[2023-02-01] MEDS: GABAPENTIN 600 MG TAB PO SCH (20:06)
[2023-02-01] MEDS: LORazepam 0.5 MG TAB PO SCH (20:06)
[2023-02-02] MEDS: ACETAMINOPHEN 500 MG TAB PO SCH ×3 (01:27→16:55)
[2023-02-02 07:30] LABS: Hematocrit (blood only) 36.4 % (37.0-47.0); Hemoglobin 11.9 g/dl (12.0-16.0); Mean Corpuscular Hemoglobin 29.3 pg (25.0-34.0); Mean Corpuscular Hgb Conc 32.7 g/dL (32.0-36.0); Mean Corpuscular Volume 89.7 fL (80.0-100.0); Platelet Count 194 K/uL (130-400); RDW Coefficient of Variation 13.2 % (11.5-14.5); RDW Standard Deviation 44.1 fL (36.4-46.3); Red Blood Count 4.06 M/uL (4.20-5.40); White Blood Count 4.32 K/ul (4.8-10.8)
--- NOTE | 2023-02-02 07:37 | Urology Progress Note ---
Date of Service February 02, 2023 Assessment & Plan (1) Complicated UTI (urinary tract infection): (2) Pyelonephritis: (3) Renal mass: Plan 52yo/F who presented with lower abdominal pain and new urinary symptoms admitted with UTI/Pyelo. CT abd/pelvis with findings consistent with a bilateral pyelitis/pyelonephritis with an associated cystitis, no renal or ureteral stones, no hydronephrosis. Also with incidental finding of a 12mm exophytic lesion within the right kidney which does not clearly represent a simple cyst. Afebrile, hemodynamically stable. Labs reviewed -Wbc 4.32, Hemoglobin 11.9, Creatinine 0.66. Urine culture prelim staphylococcus saprophyticus, blood culture prelim no growth x 24 hours. Voiding spontaneously, continue to monitor. Bladder scan prn. No intervention warranted. Continue antibiotics and tailor as culture data becomes available. Continue supportive care. We discussed the incidental finding of the 12mm right renal lesion and that she will need outpatient follow-up for this. Will arrange outpatient follow-up with our service. Urology will follow peripherally. Please contact us with any further questions, concerns, or changes in patient status. Admission and Anticipated Discharge Date Admission Date: February 01, 2023 Subjective Patient examined at bedside this AM. Awake, resting in bed on arrival. No acute distress. She reports feeling better today than yesterday. Still with flank pain which radiates to groin, but improved. Denies fevers, chills, nausea, vomiting. Voiding without issue. Denies hematuria and dysuria. Review of Systems Constitutional: as per Subjective / HPI Gastrointestinal: as per Subjective / HPI Genitourinary: as per Subjective / HPI Physical Exam Constitutional: no acute distress Respiratory: no respiratory distress and no labored breathing Skin: No visible rashes or lesions to exposed skin areas Neurologic: moves all extremities and awake Psychiatric: A+Ox3, euthymic affect Results & Data Vital Signs (Past 12 Hours) Vital Signs Temp Pulse Resp BP Pulse Ox O2 Del Method 02/01/23 21:34 36.6 C 66 18 93/61 L 96 Room Air PG Care Time/CCT Total # of Minutes Spent Total Time Spent with Patient: Total time spent is greater than 50% in coordination of care (as documented) at patient's floor/unit and/or counseling patient: Coding Level of Care Code 95977 SUB INP/OBS CARE MIN Diagnoses Complicated UTI (urinary tract infection) N39.0 Pyelonephritis N12 Renal mass N28.89
[2023-02-02 07:46] LABS: BUN Creatinine Ratio 13.6 (10-20); Calcium 8.7 mg/dl (8.6-10.3); Creatinine Clr Calc Pharmacy 101.5 ml/min; Est GFR (African American) 119.4 ml/min; Potassium 3.6 mmol/L (3.5-5.1)
[2023-02-02] MEDS: PANTOprazole 40 MG in SYRINGE 0 ML IV SCH (08:07)
[2023-02-02] MEDS: MULTIVITAMIN TAB PO SCH (08:08)
[2023-02-02] MEDS: buPROPion XL 150 MG TABCR PO SCH (08:10)
[2023-02-02] MEDS: PHENAZOPYRIDINE HCL 100 MG TAB PO PRN ×2 (08:10→21:03)
[2023-02-02] MEDS: ZINC SULFATE 220 MG CAPSULE PO SCH (08:11)
[2023-02-02] MEDS: TOPIRAMATE 25 MG TAB PO SCH ×2 (08:11→21:03)
[2023-02-02] MEDS: LEVOTHYROXINE SODIUM 50 MCG TABLET PO SCH (08:11)
[2023-02-02] MEDS: ARIPiprazole 5 MG TAB PO SCH (08:11)
[2023-02-02] MEDS: NYSTATIN POWDER 15GM BTL EXT SCH ×3 (08:12→21:02)
[2023-02-02] MEDS: DAPTOmycin 250 MG in SYRINGE 0 ML IV SCH (10:56)
[2023-02-02] MEDS: ONDANSETRON INJ 2 MG/ML 2 ML VIAL IV PRN (11:17)
[2023-02-02] MEDS ORDERED: SUMAtriptan succinate 50 MG TAB PO ONE (14:03)
--- NOTE | 2023-02-02 18:44 | Hospitalist Progress Note ---
Date of Service February 02, 2023 Assessment & Plan (1) Acute pyelitis: (2) Complicated UTI (urinary tract infection): (3) Renal mass: (4) Hypothyroidism: (5) Jejunal ulcer: (6) Depression: (7) Anxiety: (8) Migraine variant: Plan Patient is a 52 yr F with a PMH of depression, anxiety, hypothyroidism, history of gastric bypass, history of migraine and recent diagnosis of non-bleeding jejunal ulcers who presents with lower abdominal pain and new urinary symptoms and was found to have acute bilateral pyelitis. Acute pyelonephritis Complicated UTI Renal Mass --CT abd/pelvis with findings consistent with a bilateral pyelitis/pyelonephritis with an associated cystitis. Recommend correlation with urinalysis. No renal or ureteral stones. No hydronephrosis --Blood cultures: Negative to date -- Urine culture grew Staphylococcus saprophyticus Continue IV Rocephin>> changed to daptomycin Appreciate urology input Pain control Continue IV fluids as needed Pyridium for dysuria as needed Needs further evaluation of renal mass as outpatient BP better today H/O Gastric bypass Avoid NSAIDs Continue supplements Right kidney mass Incidental finding on CT abd/pelvis of a 12 mm exophytic lesion within the right kidney which does not clearly represent a simple cyst. Therefore, this is concerning for a solid renal mass Further management as outpatient Jejunal ulcers EGD from 01/27 revealed a few nonbleeding jejunal ulcers and patient was started on Prilosec. Continue PPI Depression Anxiety Continue Abilify, bupropion, Doxepin, gabapentin, PRN ativan History of migraine headaches Continue Topamax DVT Px: SCDs for now Code status: FULL CODE Admission and Anticipated Discharge Date Admission Date: February 01, 2023 Subjective Patient is seen and examined at bedside States feeling better today Dizziness, nausea, groin pain improving No new complaints Blood pressure better today Denies any chest pain, dyspnea, nausea, vomiting, hematuria Urine culture growing Staphylococcus saprophyticus Review of Systems Review of Systems: All systems reviewed & are unremarkable except as noted in Subjective Physical Exam Physical Exam: Physical Exam: Vitals signs as noted above General Appearance:Moderately built and nourished, no apparent distress Head: normocephalic, Atraumatic Eyes: normal inspection, EOMI Neck: supple, Trachea midline Respiratory/Chest: Normal breath sounds, CTA, No accessory muscle use Cardiovascular: S1, S2, No murmur Abdomen/GI:Soft, Non tender, Bowel sounds present Extremities/Musculoskeletal:normal inspection, 1+ edema Neurologic/Psych:AAOX3, grossly no focal neurological deficits Skin: normal color, warm Results & Data Results & Data Vital Signs (Past 12 Hours) Vital Signs Temp Pulse Resp BP Pulse Ox O2 Del Method 02/02/23 16:32 36.7 C 60 16 107/70 95 Room Air 02/02/23 07:42 36.7 C 71 16 121/78 96 Room Air Laboratory Results Short CBC 02/02/23 Range/Units 06:59 WBC 4.32 L (4.8-10.8) K/ul Hgb 11.9 L (12.0-16.0) g/dl Hct 36.4 L (37.0-47.0) % Plt Count 194 (130-400) K/uL BMP 02/02/23 06:59 Sodium 140 Potassium 3.6 Chloride 114 H Carbon Dioxide 23 BUN 9 Creatinine 0.66 Glucose 81 Calcium 8.7
[2023-02-02] MEDS: DOXEPIN HCL 50 MG CAPSULE PO SCH (21:02)
[2023-02-02] MEDS: GABAPENTIN 600 MG TAB PO SCH (21:02)
[2023-02-02] MEDS: LORazepam 0.5 MG TAB PO SCH (21:02)
[2023-02-02] MEDS: HYDROmorphone INJ 0.5 MG/0.5 ML SYR IV PRN (21:57)
[2023-02-03] MEDS: ACETAMINOPHEN 500 MG TAB PO SCH ×2 (00:54→08:55)
[2023-02-03 08:37] LABS: Hematocrit (blood only) 39.6 % (37.0-47.0); Hemoglobin 12.9 g/dl (12.0-16.0); Mean Corpuscular Hemoglobin 29.2 pg (25.0-34.0); Mean Corpuscular Hgb Conc 32.6 g/dL (32.0-36.0); Mean Corpuscular Volume 89.6 fL (80.0-100.0); Mean Platelet Volume 10.8 fL (9.4-12.4); Platelet Count 226 K/uL (130-400); RDW Coefficient of Variation 13.3 % (11.5-14.5); Red Blood Count 4.42 M/uL (4.20-5.40); White Blood Count 4.88 K/ul (4.8-10.8)
[2023-02-03] MEDS: PANTOprazole 40 MG in SYRINGE 0 ML IV SCH (08:47)
[2023-02-03] MEDS: ONDANSETRON INJ 2 MG/ML 2 ML VIAL IV PRN (08:47)
[2023-02-03] MEDS: HYDROmorphone INJ 0.5 MG/0.5 ML SYR IV PRN (08:47)
[2023-02-03] MEDS: PHENAZOPYRIDINE HCL 100 MG TAB PO PRN (08:47)
[2023-02-03] MEDS: ZINC SULFATE 220 MG CAPSULE PO SCH (08:48)
[2023-02-03] MEDS: LEVOTHYROXINE SODIUM 50 MCG TABLET PO SCH (08:48)
[2023-02-03] MEDS: MULTIVITAMIN TAB PO SCH (08:48)
[2023-02-03] MEDS: ERGOCALCIFEROL 50,000 UNITS 1250 MCG CAP PO SCH (08:48)
[2023-02-03] MEDS: TOPIRAMATE 25 MG TAB PO SCH (08:48)
[2023-02-03] MEDS: buPROPion XL 150 MG TABCR PO SCH (08:48)
[2023-02-03] MEDS: ARIPiprazole 5 MG TAB PO SCH (08:49)
[2023-02-03] MEDS: NYSTATIN POWDER 15GM BTL EXT SCH ×2 (08:52→15:51)
[2023-02-03 08:57] LABS: BUN Creatinine Ratio 16.3 (10-20); Creatinine Clr Calc Pharmacy 83.8 ml/min; Est GFR (African American) 99.6 ml/min; Potassium 4.3 mmol/L (3.5-5.1)
[2023-02-03] MEDS: DAPTOmycin 250 MG in SYRINGE 0 ML IV SCH (11:31)
--- NOTE | 2023-02-03 13:50 | Hospitalist Progress Note ---
Date of Service February 03, 2023 Assessment & Plan (1) Acute pyelitis: (2) Complicated UTI (urinary tract infection): (3) Renal mass: (4) Hypothyroidism: (5) Jejunal ulcer: (6) Depression: (7) Anxiety: (8) Migraine variant: Plan Patient is a 52 yr F with a PMH of depression, anxiety, hypothyroidism, history of gastric bypass, history of migraine and recent diagnosis of non-bleeding jejunal ulcers who presents with lower abdominal pain and new urinary symptoms and was found to have acute bilateral pyelitis. Acute pyelonephritis Complicated UTI Renal Mass --CT abd/pelvis with findings consistent with a bilateral pyelitis/pyelonephritis with an associated cystitis. Recommend correlation with urinalysis. No renal or ureteral stones. No hydronephrosis --Blood cultures: Negative to date -- Urine culture grew Staphylococcus saprophyticus Continue IV Rocephin>> changed to daptomycin Appreciate urology input Pain control Received IV fluid Pyridium for dysuria as needed Advised to follow-up with urology for further evaluation of renal mass as outpatient Plan to transition to Bactrim upon discharge to complete the antibiotic course H/O Gastric bypass Avoid NSAIDs Continue supplements Right kidney mass Incidental finding on CT abd/pelvis of a 12 mm exophytic lesion within the right kidney which does not clearly represent a simple cyst. Therefore, this is concerning for a solid renal mass Further management as outpatient Jejunal ulcers EGD from 01/27 revealed a few nonbleeding jejunal ulcers and patient was started on Prilosec. Continue PPI Depression Anxiety Continue Abilify, bupropion, Doxepin, gabapentin, PRN ativan History of migraine headaches Continue Topamax Code status: FULL CODE Admission and Anticipated Discharge Date Admission Date: February 01, 2023 Subjective Patient is seen and examined at bedside States feeling tired today Dysuria improved Denies any dizziness today Also denies any chest pain, dyspnea, nausea, vomiting, hematuria Review of Systems Review of Systems: All systems reviewed & are unremarkable except as noted in Subjective Physical Exam Physical Exam: Physical Exam: Vitals signs as noted above General Appearance:Moderately built and nourished, no apparent distress Head: normocephalic, Atraumatic Eyes: normal inspection, EOMI Neck: supple, Trachea midline Respiratory/Chest: Normal breath sounds, CTA, No accessory muscle use Cardiovascular: S1, S2, No murmur Abdomen/GI:Soft, Non tender, Bowel sounds present Extremities/Musculoskeletal:normal inspection, 1+ edema Neurologic/Psych:AAOX3, grossly no focal neurological deficits Skin: normal color, warm Results & Data Results & Data Vital Signs (Past 12 Hours) Vital Signs Temp Pulse Resp BP Pulse Ox O2 Del Method 02/03/23 09:36 Room Air 02/03/23 07:49 36.7 C 67 18 108/75 97 Room Air Laboratory Results Short CBC 02/03/23 Range/Units 07:58 WBC 4.88 (4.8-10.8) K/ul Hgb 12.9 (12.0-16.0) g/dl Hct 39.6 (37.0-47.0) % Plt Count 226 (130-400) K/uL BMP 02/03/23 07:58 Sodium 140 Potassium 4.3 Chloride 112 H Carbon Dioxide 24 BUN 13 Creatinine 0.80 Glucose 95 Calcium 9.0
--- NOTE | 2023-02-03 14:10 | Discharge Summary ---
Date of Service February 03, 2023 Admission HPI Per Admitting Provider This is a 52yo F with a PMH of depression, anxiety, hypothyroidism, history of gastric bypass, history of migraine and recent diagnosis of non-bleeding jejunal ulcers who presents with lower abdominal pain and new urinary symptoms. Patient had upper endoscopy performed on Saturday 01/27 and was found to have a few nonbleeding jejunal ulcers and was started on Prilosec. Developed increased lower abdominal pain yesterday with increased urinary frequency and urgency. Was directed by PCP to present to ED today for further evaluation of infection or kidney stones. Patient denies any fever, chills or lightheadedness. No nausea or vomiting. Denies any history of UTIs or kidney stones in the past. No CP, SOB, N/V, diarrhea or constipation. Admission Exam Per Admitting Provider Currently she is lying in bed, in no acute distress. She is alert oriented answering appropriately. Lungs are clear to auscultation. Heart sounds regular. Abdomen soft, tender bilaterally in the flanks and lower abdomen, + bowel sounds. There is no lower extremity edema. Skin is warm and dry. Patient is moving extremities spontaneously without difficulty. Principal Diagnosis Acute pyelonephritis Right kidney mass Discharge Data Allergies Allergy/AdvReac Type Severity Reaction Status Date / Time codeine Allergy Intermediate hives Verified 09/03/21 16:28 dextromethorphan Allergy Intermediate HIVES Verified 09/03/21 16:28 doxylamine Allergy Intermediate HIVES Verified 09/03/21 16:28 morphine Allergy Intermediate RASH Verified 09/03/21 16:28 pseudoephedrine Allergy Intermediate HIVES Verified 09/03/21 16:28 ibuprofen AdvReac Unknown D/T Verified 09/03/21 16:28 GASTRIC BYPASS--NOT TO TAKE. Ethanol Allergy Intermediate HIVES Uncoded 09/03/21 16:28 Consultations 01/31/23 17:21 ED Decision to Admit Stat 02/01/23 08:00 Consult Urology Routine Procedures Performed Laboratory Results WBC 4.88 K/ul (4.8-10.8) 02/03/23 07:58 RBC 4.42 M/uL (4.20-5.40) 02/03/23 07:58 Hgb 12.9 g/dl (12.0-16.0) 02/03/23 07:58 Hct 39.6 % (37.0-47.0) 02/03/23 07:58 MCV 89.6 fL (80.0-100.0) 02/03/23 07:58 MCH 29.2 pg (25.0-34.0) 02/03/23 07:58 MCHC 32.6 g/dL (32.0-36.0) 02/03/23 07:58 RDW Std Deviation 44.0 fL (36.4-46.3) 02/03/23 07:58 RDW Coeff of Shelli 13.3 % (11.5-14.5) 02/03/23 07:58 Plt Count 226 K/uL (130-400) 02/03/23 07:58 MPV 10.8 fL (9.4-12.4) 02/03/23 07:58 Immature Gran % (Auto) 0.2 % 01/31/23 14:57 Neut % (Auto) 71.0 % 01/31/23 14:57 Lymph % (Auto) 18.9 % 01/31/23 14:57 Robertson % (Auto) 6.2 % 01/31/23 14:57 Eos % (Auto) 3.0 % 01/31/23 14:57 Baso % (Auto) 0.7 % 01/31/23 14:57 Neut # (Auto) 7.83 K/uL (1.40-6.50) H 01/31/23 14:57 Lymph # (Auto) 2.09 K/uL (1.2-3.4) 01/31/23 14:57 Robertson # (Auto) 0.68 K/uL (0.11-0.59) H 01/31/23 14:57 Eos # (Auto) 0.33 K/uL (0-0.50) 01/31/23 14:57 Baso # (Auto) 0.08 K/uL (0-0.2) 01/31/23 14:57 Immature Gran # (Auto) 0.02 K/uL (0.01-0.20) 01/31/23 14:57 Sodium 140 mmol/L (136-145) 02/03/23 07:58 Potassium 4.3 mmol/L (3.5-5.1) 02/03/23 07:58 Chloride 112 mmol/L (98-107) H 02/03/23 07:58 Carbon Dioxide 24 mmol/L (21-32) 02/03/23 07:58 Anion Gap 4 (3-11) 02/03/23 07:58 BUN 13 mg/dl (6-23) 02/03/23 07:58 Creatinine 0.80 mg/dl (0.6-1.2) 02/03/23 07:58 Est Cr Clr Drug Dosing 83.8 ml/min 02/03/23 07:58 Est GFR ( Amer) 99.6 ml/min 02/03/23 07:58 Est GFR (Non-Af Amer) 86.0 ml/min 02/03/23 07:58 BUN/Creatinine Ratio 16.3 (10-20) 02/03/23 07:58 Glucose 95 mg/dl (70-99(Fasting)) 02/03/23 07:58 Calcium 9.0 mg/dl (8.6-10.3) 02/03/23 07:58 Magnesium 2.0 mg/dl (1.7-2.4) 02/02/23 06:59 Total Bilirubin 0.5 mg/dl (0.2-1.0) 01/31/23 14:57 AST 17 U/L (13-39) 01/31/23 14:57 ALT 19 U/L (7-52) 01/31/23 14:57 Alkaline Phosphatase 98 U/L (34-104) 01/31/23 14:57 Total Protein 7.4 gm/dl (6.0-8.3) 01/31/23 14:57 Albumin 4.5 gm/dl (3.4-5.0) 01/31/23 14:57 Globulin 2.9 gm/dl (2.5-4.0) 01/31/23 14:57 Albumin/Globulin Ratio 1.6 (0.9-2) 01/31/23 14:57 Urine Color Dark Yellow 01/31/23 14:57 Urine Appearance Cloudy (Clear) A 01/31/23 14:57 Urine pH 8.0 (4.5-7.5) H 01/31/23 14:57 Ur Specific Waddell 1.016 (1.000-1.030) 01/31/23 14:57 Urine Protein 1+ (Negative) H 01/31/23 14:57 Urine Glucose (UA) Negative (Negative) 01/31/23 14:57 Urine Ketones Trace (Negative) H 01/31/23 14:57 Urine Blood 2+ (Negative) H 01/31/23 14:57 Urine Nitrite Positive (Negative) A 01/31/23 14:57 Urine Bilirubin Negative (Negative) 01/31/23 14:57 Urine Urobilinogen Negative (Negative) 01/31/23 14:57 Ur Leukocyte Esterase 2+ (Negative) H 01/31/23 14:57 Urine WBC (Auto) >30 /hpf (0-5) H 01/31/23 14:57 Urine RBC (Auto) >30 /hpf (0-4) H 01/31/23 14:57 U Hyaline Cast (Auto) 1-5 /lpf (0-5) 01/31/23 14:57 U Epithel Cells (Auto) 5-10 /lpf (0-5) H 01/31/23 14:57 Urine Bacteria (Auto) 1+ (Negative) H 01/31/23 14:57 POC Ur Test Cancelled 01/31/23 15:34 SARS-CoV-2, RNA, NAAT NEGATIVE (NEGATIVE) 01/31/23 17:25 Impressions Abdomen/Pelvis CT 01/31/23 15:[address] WITHOUT CONTRAST CT DOSE: 1257.11 mGy.cm HISTORY: Generalized abdominal pain. Hematuria. poss k stones TECHNIQUE: Multiaxial CT images of the abdomen and pelvis were performed without contrast. A dose lowering technique was utilized adhering to the principles of ALARA. COMPARISON STUDY: Abdomen and pelvis CT 12/03/2017. FINDINGS: The lung bases are essentially clear. No pneumoperitoneum. No pneumatosis. No acute fractures identified. An L1 vertebral body hemangioma is again noted. Tiny fat-containing midline supra umbilical an infraumbilical hernias. Cholecystectomy. Prior Isaac-en-Y gastric bypass again noted. The unenhanced liver, spleen, adrenal glands, and pancreas are unremarkable. No retroperitoneal lymphadenopathy. Normal caliber abdominal aorta. No renal or ureteral stones. No hydronephrosis. There is a 12 mm exophytic lesion within the right kidney and image 145. This does not clearly represent a simple cyst and could represent a solid renal mass. Mild bilateral perinephric fat stranding. There is urothelial thickening within the bilateral ureters with periureteral edema/fat stranding. There is also bladder wall thickening with adjacent fat stranding/edema. Therefore, these findings are consistent with a bilateral pyelitis/pyelonephritis with an associated cystitis. The uterus and adnexa are unremarkable. No pelvic free fluid. Suboptimal evaluation for bowel pathology due to the lack of intravenous and oral contrast. However, there is no definite bowel wall thickening or obstruction. Normal appendix. Colonic diverticulosis. No evidence for acute diverticulitis. IMPRESSION: 1. Above findings consistent with a bilateral pyelitis/pyelonephritis with an associated cystitis. Recommend correlation with urinalysis. 2. No renal or ureteral stones. No hydronephrosis. 3. A 12 mm exophytic lesion within the right kidney which does not clearly represent a simple cyst. Therefore, this is concerning for a solid renal mass. Follow-up nonemergent dedicated renal CT or MRI is recommended for further evaluation. 4. No bowel wall thickening or obstruction. 5. Normal appendix. ACT 112: Positive. There are findings on this exam that require communication between the performing entity and the patient following Patient Test Result Information Act ([place] Act 112) guidelines. Electronically signed by: JesusA lberto Shah M.D. 01/31/2023 4:35 PM Ordered Studies 01/31/23 15:42 CT abd pelvis wo con Stat Hospital Course (1) Acute pyelitis: (2) Complicated UTI (urinary tract infection): (3) Renal mass: (4) Hypothyroidism: (5) Jejunal ulcer: (6) Depression: (7) Anxiety: (8) Migraine variant: Plan Patient is a 52 yr F with a PMH of depression, anxiety, hypothyroidism, history of gastric bypass, history of migraine and recent diagnosis of non-bleeding jejunal ulcers who presents with lower abdominal pain and new urinary symptoms and was found to have acute bilateral pyelitis. Acute pyelonephritis Complicated UTI Renal Mass --CT abd/pelvis with findings consistent with a bilateral pyelitis/pyelonephritis with an associated cystitis. Recommend correlation with urinalysis. No renal or ureteral stones. No hydronephrosis --Blood cultures: Negative to date -- Urine culture grew Staphylococcus saprophyticus Continue IV Rocephin>> changed to daptomycin Appreciate urology input Pain control Received IV fluid Pyridium for dysuria as needed Advised to follow-up with urology for further evaluation of renal mass as outpatient Plan to transition to Bactrim upon discharge to complete the antibiotic course H/O Gastric bypass Avoid NSAIDs Continue supplements Right kidney mass Incidental finding on CT abd/pelvis of a 12 mm exophytic lesion within the right kidney which does not clearly represent a simple cyst. Therefore, this is concerning for a solid renal mass Further management as outpatient Jejunal ulcers EGD from 01/27 revealed a few nonbleeding jejunal ulcers and patient was started on Prilosec. Continue PPI Depression Anxiety Continue Abilify, bupropion, Doxepin, gabapentin, PRN ativan History of migraine headaches Continue Topamax Code status: FULL CODE Total Time Total Time Spent Total Time Spent (In Minutes): 58 minutes Discharge Plan Discharge Items Patient Disposition: Home - Self-Care Reason For Visit: BILATERAL PYELITIS Discharge Diagnosis: Acute pyelonephritis Right kidney mass Activity: Per Instructions section Exercise/Sports: Wait until after follow-up appointment Non-emergency contact: Primary Care Provider and Urologist Call non-emergency contact if: you have any medication questions, your symptoms worsen, your pain is concerning for you and you have a fever Follow-up/Referrals: Yulia Gilliam PA-C [Primary Care Provider] - (Date & Time 02/10/2023 10:40 AM Provider Yulia Gilliam PA-C [facility] ) Diet: Heart Healthy Addtl Attending Provider Instructions: Follow-up with your primary care physician Yulia Gilliam PA-C on 02/10/2023 1 0:40 AM as scheduled Follow-up with your urologist Dr. Tong Suh for further evaluation of kidney mass as advised. --- Complete antibiotic course Bactrim as prescribed for urinary tract infection. --- Increase oral fluid intake as advised while on antibiotics. --Final blood cultures are pending at the time of discharge. Follow-up with your physician for results. Seek immediate medical attention if your symptoms reoccur or worsen Please take all medications as instructed on discharge list below. Please call if you have any questions or problems. You can reach a [facility] hospitalist on duty at [facility] 24 hours a day by calling [phone] Seek immediate medical attention if your symptoms reoccur or worsen Please take all medications as instructed on discharge list below. Please call if you have any questions or problems. You can reach a [facility] hospitalist on duty at [facility] 24 hours a day by calling [phone] [employer]erical [employer]igator Provider Instructions: The [facility] office will contact you to arrange a follow-up visit. Please call our office at [phone] with any questions, concerns or need to reschedule appointments for any reason. We are happy to assist you. Pending Studies at Discharge: Yes Studies:: Blood cultures Stand-Alone Forms: My [facility], Smoking Cessation Medications and DC Order Prescriptions: New phenazopyridine [Pyridium] 100 mg Tablet 100 mg PO TID PRN (Reason: pain) Qty: 30 0RF sulfamethoxazole-trimethoprim [Bactrim DS] 800-160 mg tablet 1 tab PO BID Qty: 16 0RF Rx Instructions: Start taking from 02/04/2023 Continued multivitamin [Vitamin A Day] Tablet 1 tab PO DAILY Rx Instructions: DOSE 3000 MCG PER PT'S PHARMACY. doxepin 50 mg Capsule 50 mg PO HS gabapentin 600 mg Tablet 600 mg PO HS cyanocobalamin (vitamin B-12) [Vitamin B-12] 1,000 mcg/mL Solution 1,000 mcg IM [id number] ergocalciferol (vitamin D2) [Vitamin D2] 1,250 mcg (50,000 unit) Capsule 1,250 mcg PO [id number] Rx Instructions: monday, monday, and monday omeprazole 20 mg Tablet,Delayed Release (Dr/Ec) 20 mg PO DAILY Ozempic 0.25 mg or 0.5 mg(2 mg/1.5 mL) Pen Injector 0.5 mg SUBCUT WK Rx Instructions: TAKES ON SUNDAYS topiramate [Topamax] 25 mg Tablet See Rx Instructions .ROUTE .COMPLEX Rx Instructions: PER PT'S PHARMACY---25 mg orally; TAKES 25 MG QAM, THEN 75 MG QPM. PT DID NOT MENTION THIS MEDICATION. aripiprazole [Abilify] 5 mg Tablet 5 mg PO DAILY Rx Instructions: PER PT "STILL TAKING". PER PT'S PHARMACY, "NOT SURE IF STILL TAKING". lorazepam 0.5 mg tablet 0.5 mg PO HS Rx Instructions: PER PT SHE USUALLY DOES 1/2 TAB levothyroxine 50 mcg tablet 50 mcg PO DAILY nystatin 100,000 unit/gram powder 1 applic TOPICAL TID bupropion HCl 150 mg tablet extended release 24 hr 150 mg PO QAM zinc sulfate 50 mg zinc (220 mg) capsule 50 mg PO DAILY cholecalciferol (vitamin D3) 1,250 mcg (50,000 unit) capsule 1,250 mcg PO WK Rx Instructions: fridays Discharge Orders: Discharge Order (Routine); Ordered 02/03/23 Ordered By: Estiven Hammonds Admission Data Admit Date/Time: 02/01/23 19:39 Attending Provider: Estiven Hammonds Admit Provider: Estiven Hammonds Primary Care Provider: Yulia Gilliam Other Providers: Hernando Flores ; Derek Pacheco ; Earl Melchor ; Gualberto Hughes ; Lluvia Xiong ; Pradip Knox ; Chantal Woodward ; Irais Bello ; Tong Suh ; Liam Luo ; Saira Mackey ; Austin Ley ; Mian Holden
== END 2023-02-03 16:23 | disposition home or self-care (01) | DRG 690 ==
LOC: ED 14:36 → 3W 14:36 → SUATTDRO 17:45 → 3W 19:37